=== PATIENT | female | born 1995 | race Caucasian/White ===

== ENCOUNTER 2025-06-19 04:21 | Emergency (ER) | payer BC, SELFPAY ==
--- OUTSIDE RECORDS SUMMARY | 2025-06-06 07:20 | XMS RPT_ITS ---
Author Name Auto Generated Organization OHIP Care Team Providers Care In Shop Service Technician Name Role Phone GENE WOODRUFF Attending Unavailable CINTHYA MAGALLANES Primary Care Unavailab CINTHYA Fregoso Attending Unavailab CINTHYA Fregoso Primary Care Unavailab CINTHYA Fregoso Attending Unavailab CINTHYA Fregoso Primary Care Unavailab CINTHYA Fregoso Primary Care Unavailab CINTHYA Fregoso Referring Unavailab CINTHYA Fregoso Primary Care Unavailab CINTHYA Fregoso Attending Unavailab CINTHYA Fregoso Primary Care Unavailab CINTHYA Fregoso Referring Unavailab CINTHYA Fregoso Attending Unavailab CINTHYA Fregoso Primary Care Unavailab CINTHYA Fregoso Referring Unavailab CONCEPCION Bates Attending Unavailable CINTHYA MAGALLANES Primary Care Unavailab CINTHYA Fregoso Attending Unavailab le PROBLEMS DATE TYPE CONDITION / CODE ATTENDING STATUS [facility] 06/06/2025 Active Seasonal allergi es / J30.2(ICD-10) CINTHYA MAGALLANES Active [facility] 04/22/2025 Active Encounter for gynecological examination (general) (routine) without abnormal findings / Z01.419(ICD-10) CONCEPCION SANFORD Active [facility] 04/22/2025 Active Encounter for sc reening for human papillomavirus (HPV) / Z11.51(ICD-10) CONCEPCION SANFORD Active [facility] 05/07/2022 Active Attention defici t disorder, unspecified type / F98.8(ICD-10) CINTHYA MAGALLANES Active [facility] 02/10/2025 Active Ear pain, right / H92.01(ICD-10) CINTHYA MAGALLANES Active [facility] 02/10/2025 Active Dysfunction of r ight eustachian tube / H69.91(ICD-10) CINTHYA MAGALLANES Active [facility] 02/10/2025 Active Seasonal allergi c rhinitis, unspecified trigger / J30.2(ICD-10) CINTHYA MAGALLANES Active [facility] 12/09/2024 Active Class 1 obesity without serious comorbidity with body mass index (BMI) of 31.0 to 31.9 in adult, unspecified obesity type / E66.811(ICD-10) CINTHYA MAGALLANES Active [facility] 12/09/2024 Active Class 1 obesity without serious comorbidity with body mass index (BMI) of 31.0 to 31.9 in adult, unspecified obesity type / Z68.31(ICD-10) CINTHYA MAGALLANES Active [facility] 12/09/2024 Active Annual physical exam / Z00.00(ICD-10) CINTHYA MAGALLANES Active [facility] 12/09/2024 Active Tachycardia / R00.0(ICD-10) CINTHYA MAGALLANES Active [facility] 12/09/2024 Active Screening for ce rvical cancer / Z12.4(ICD-10) CINTHYA MAGALLANES Active [facility] 05/07/2022 Active Attention defici t hyperactivity disorder (ADHD), unspecified ADHD type / F90.9(ICD-10) CINTHYA MAGALLANES Active [facility] 07/21/2024 Active Impacted cerumen of right ear / H61.21(ICD-10) PODLOGGENE SUTHERLAND Active [facility] 07/21/2024 Active Right ear pain / H92.01(ICD-10) PODLOGGENE SUTHERLAND Active [facility] PROCEDURES No Procedure Records Found RESULTS PROGRESS Observed: 06/06/2025 7:40 AM Status: COMPLETED Source: [facility] HNO ID: [id number] Author: CINTHYA MAGALLANES MD Service: ? Author Type: Physician Type: Progress Notes Filed: 06/06/2025 08:03 Note Text: Chief Complaint Patient presents with: ADD/ADHD Recording using Gazemetrix software for draft documentation of the visit was discussed with the patient/authorized human resources hr representative; all questions welcomed and answered. Patient/authorized human resources hr representative agreed to proceed HPI Miller Ellis is a 29 year old female who presents here today for Above Complaints. ADHD: - Miller Ellis recently switched to Strattera 40 mg. - Reports really bad heartburn when taking medication on an empty stomach; resolved by eating after taking the medication. - Able to concentrate and complete tasks; no issues at work or home. - Occasionally loses keys; no other organizational problems. - Denies other side effects from the medication. - Prefers to continue current dosage. Allergies: - Well-managed with Zyrtec. - Denies new coughing, wheezing, or dyspnea. Past medical history, appointments, medications, allergies reviewed. Previous Medical History PAST MEDICAL HISTORY Diagnosis Date Attention deficit disorder (ADD) without hyperactivity Obesity Other acne Seasonal allergies Previous Surgical History PAST SURGICAL HISTORY Procedure Laterality Date TONSILLECTOMY AND ADENOIDECTOMY <AGE 10 Bilateral Family History FAMILY HISTORY Problem Relation Age of Onset Seizures Mother other (epilipsy) Mother Crohn's Disease Mother No Known Problems Father other (epilipsy) Sister Endometriosis Sister ADD/ADHD Sister No Known Problems Sister Seizures Brother other (heart transplant) Maternal Grandmother Alcohol abuse Maternal Grandfather Recovered Diabetes Paternal Grandfather Colon Cancer No Family History Patient Allergies ALLERGIES Allergen Reactions Adderall Xr [Dextro* Other: See Comments Tachycardia Current Medications Current Outpatient Medications on File Prior to Visit Medication Sig cetirizine HCl (ZYRTEC PO) Take by mouth. atomoxetine (STRATTERA) 40 mg capsule Take 1 capsule by mouth once daily. cetirizine HCl/pseudoephedrine (ZYRTEC-D ORAL) Take by mouth. (Patient not taking: Reported on 04/22/2025) No current facility-administered medications on file prior to visit. Social History SOCIAL HISTORY[1] Review of Symptoms REVIEW OF SYSTEMS GENERAL: No weight loss, malaise or fevers RESPIRATORY: Negative for cough, hemoptysis, wheezing, COPD, dyspnea or shortness of breath CARDIOVASCULAR: Negative for chest pain, leg swelling, hypertension, CHF or palpitations GI: No nausea, vomiting, or diarrhea SKIN: Negative for lesions, rash, and itching EXAM: BP 112/74 Pulse 87 Ht 170.2 cm (5' 7) Wt 92.1 kg (203 lb) LMP 04/05/2025 (Approximate) SpO2 98% BMI 31.79 kg/m? General Appearance: Well appearing, alert, in no acute distress, well-hydrated, well nourished.. Skin: Skin color, texture, turgor normal, no suspicious rashes or lesions. Lungs: Lungs clear to auscultation. No wheezing, rhonchi, rales.. Heart: RRR without murmur, gallop, or rubs. No ectopy. Abdomen: Normal abdominal exam, Abdomen soft, non-tender. Bowel sounds normal. No masses, organomegaly. Extremities: No deformities, edema, skin discoloration, clubbing or cyanosis. Good capillary refill. . Health Maintenance List Depression Screening Never done Anxiety Screening Never done HPV Vaccine(1 - 3-dose SCDM series) Never done Influenza Vaccine(1) due on 03/21/2026 Cervical Cancer Screening due on 04/22/2030 DTaP,Tdap,Td Vaccine(8 - Td or Tdap) due on 09/03/2032 Hepatitis B Vaccine Completed Hepatitis C Screening Completed HIV Screening Completed Data reviewed Latest Ref Rng 12/09/2024 WBC 3.70 - 11.00 k/uL 5.06 RBC 3.90 - 5.20 m/uL 4.85 Hemoglobin 11.5 - 15.5 g/dL 13.4 Hematocrit 36.0 - 46.0 % 40.7 MCV 80.0 - 100.0 fL 83.9 MCH 26.0 - 34.0 pg 27.6 MCHC 30.5 - 36.0 g/dL 32.9 RDW-CV 11.5 - 15.0 % 12.7 Platelet Count 150 - 400 k/uL 293 MPV 9.0 - 12.7 fL 10.5 Neut% % 53.1 Abs Neut (ANC) 1.45 - 7.50 k/uL 2.69 Lymph% % 32.8 Abs Lymph 1.00 - 4.00 k/uL 1.66 [place]% % 10.7 Abs [place] <0.87 k/uL 0.54 Eosin% % 2.4 Abs Eosin <0.46 k/uL 0.12 Baso% % 0.8 Abs Baso <0.11 k/uL 0.04 Immature Gran % % 0.2 IMMATURE GRANS (ABS) <0.10 k/uL <0.03 NRBC /100 WBC 0.0 Absolute nRBC <0.01 k/uL <0.01 DTYPE Auto Protein, Total 6.3 - 8.0 g/dL 7.4 Albumin 3.9 - 4.9 g/dL 4.5 Calcium 8.5 - 10.2 mg/dL 9.2 Bilirubin, Total 0.2 - 1.3 mg/dL 0.5 Alkaline Phosphatase 34 - 123 U/L 62 AST 13 - 35 U/L 15 ALT 7 - 38 U/L 11 Glucose 74 - 99 mg/dL 90 BUN 7 - 21 mg/dL 11 Creatinine 0.58 - 0.96 mg/dL 0.67 Sodium 136 - 144 mmol/L 139 Potassium 3.7 - 5.1 mmol/L 4.2 Chloride 98 - 107 mmol/L 104 CO2 22 - 30 mmol/L 23 Anion Gap 8 - 15 mmol/L 12 eGFR >=60 mL/min/1.73m? 120 Total Cholesterol, Nonfasting <200 mg/dL 183 Triglycerides, Nonfasting <150 mg/dL 66 HDL Cholesterol, Nonfasting >39 mg/dL 92 LDL Cholesterol Calculated, Nonfasting <100 mg/dL 78 Non HDL Cholesterol, Nonfasting <130 mg/dL 91 VLDL Cholesterol, Nonfasting <30 mg/dL 13 Total Chol/HDL Ratio, Nonfasting <5.10 mg/dL 1.99 LDL/HDL Ratio, Nonfasting <2.54 mg/dL 0.85 Hemoglobin A1C 4.3 - 5.6 % 4.9 Estimated Average Glucose mg/dL 94 TSH 0.270 - 4.200 mIU/L 2.370 1. Attention deficit disorder, unspecified type (F98.8) - Controlled on current Strattera regimen; occasional heartburn managed by eating after medication. - No major side effects or issues with organization or task completion. - Continue current Strattera dose; patient has sufficient refills through September. - Discussed potential dose increase from 40 mg to 80 mg if symptoms worsen, with warning that this may exacerbate heartburn. - Routine follow-up not required every 3 months due to non-stimulant medication; next physical scheduled for November. 2. Seasonal allergies (J30.2) - Stable on current Zyrtec regimen. - No new symptoms of coughing, wheezing, or shortness of breath. - Continue current management. Cinthya Magallanes MD [1] Social History Tobacco Use Smoking status: Never Smokeless tobacco: Never Vaping Use Vaping status: Never Used Substance Use Topics Alcohol use: Yes Alcohol/week: 2.0 standard drinks of alcohol Types: 2 Cans of Beer (12oz) per week Comment: Occasionally Drug use: Never CNOV Observed: 06/06/2025 7:20 AM Status: COMPLETED Source: [facility] MILLER ELLIS ([id number]) 1995 F Date Time Provider Department 06/06/25 7:20 AM CINTHYA MAGALLANES [facility] During your visit today, we recorded the following information about you: Pulse Blood pressure Weight Height 87/minute 112/74 92.1 kg 1.702 m Cinthya Magallanes MD 06/06/2025 8:03 AM Signed Chief Complaint Patient presents with: ADD/ADHD Recording using Gazemet[employer] software for draft documentation of the visit was discussed with the patient/authorized human resources hr representative; all questions welcomed and answered. Patient/authorized human resources hr representative agreed to proceed HPI Miller Ellis is a 29 year old female who presents here today for Above Complaints. ADHD: - Miller Ellis recently switched to Strattera 40 mg. - Reports really bad heartburn when taking medication on an empty stomach; resolved by eating after taking the medication. - Able to concentrate and complete tasks; no issues at work or home. - Occasionally loses keys; no other organizational problems. - Denies other side effects from the medication. - Prefers to continue current dosage. Allergies: - Well-managed with Zyrtec. - Denies new coughing, wheezing, or dyspnea. Past medical history, appointments, medications, allergies reviewed. Previous Medical History PAST MEDICAL HISTORY Diagnosis Date Attention deficit disorder (ADD) without hyperactivity Obesity Other acne Seasonal allergies Previous Surgical History PAST SURGICAL HISTORY Procedure Laterality Date TONSILLECTOMY AND ADENOIDECTOMY <AGE 10 Bilateral Family History FAMILY HISTORY Problem Relation Age of Onset Seizures Mother other (epilipsy) Mother Crohn's Disease Mother No Known Problems Father other (epilipsy) Sister Endometriosis Sister ADD/ADHD Sister No Known Problems Sister Seizures Brother other (heart transplant) Maternal Grandmother Alcohol abuse Maternal Grandfather Recovered Diabetes Paternal Grandfather Colon Cancer No Family History Patient Allergies ALLERGIES Allergen Reactions Adderall Xr [Dextro* Other: See Comments Tachycardia Current Medications Current Outpatient Medications on File Prior to Visit Medication Sig cetirizine HCl (ZYRTEC PO) Take by mouth. atomoxetine (STRATTERA) 40 mg capsule Take 1 capsule by mouth once daily. cetirizine HCl/pseudoephedrine (ZYRTEC-D ORAL) Take by mouth. (Patient not taking: Reported on 04/22/2025) No current facility-administered medications on file prior to visit. Social History SOCIAL HISTORY[1] Review of Symptoms REVIEW OF SYSTEMS GENERAL: No weight loss, malaise or fevers RESPIRATORY: Negative for cough, hemoptysis, wheezing, COPD, dyspnea or shortness of breath CARDIOVASCULAR: Negative for chest pain, leg swelling, hypertension, CHF or palpitations GI: No nausea, vomiting, or diarrhea SKIN: Negative for lesions, rash, and itching EXAM: BP 112/74 Pulse 87 Ht 170.2 cm (5' 7) Wt 92.1 kg (203 lb) LMP 04/05/2025 (Approximate) SpO2 98% BMI 31.79 kg/m? General Appearance: Well appearing, alert, in no acute distress, well-hydrated, well nourished.. Skin: Skin color, texture, turgor normal, no suspicious rashes or lesions. Lungs: Lungs clear to auscultation. No wheezing, rhonchi, rales.. Heart: RRR without murmur, gallop, or rubs. No ectopy. Abdomen: Normal abdominal exam, Abdomen soft, non-tender. Bowel sounds normal. No masses, organomegaly. Extremities: No deformities, edema, skin discoloration, clubbing or cyanosis. Good capillary refill. . Health Maintenance List Depression Screening Never done Anxiety Screening Never done HPV Vaccine(1 - 3-dose SCDM series) Never done Influenza Vaccine(1) due on 03/21/2026 Cervical Cancer Screening due on 04/22/2030 DTaP,Tdap,Td Vaccine(8 - Td or Tdap) due on 09/03/2032 Hepatitis B Vaccine Completed Hepatitis C Screening Completed HIV Screening Completed Data reviewed Latest Ref Rng 12/09/2024 WBC 3.70 - 11.00 k/uL 5.06 RBC 3.90 - 5.20 m/uL 4.85 Hemoglobin 11.5 - 15.5 g/dL 13.4 Hematocrit 36.0 - 46.0 % 40.7 MCV 80.0 - 100.0 fL 83.9 MCH 26.0 - 34.0 pg 27.6 MCHC 30.5 - 36.0 g/dL 32.9 RDW-CV 11.5 - 15.0 % 12.7 Platelet Count 150 - 400 k/uL 293 MPV 9.0 - 12.7 fL 10.5 Neut% % 53.1 Abs Neut (ANC) 1.45 - 7.50 k/uL 2.69 Lymph% % 32.8 Abs Lymph 1.00 - 4.00 k/uL 1.66 [place]% % 10.7 Abs [place] <0.87 k/uL 0.54 Eosin% % 2.4 Abs Eosin <0.46 k/uL 0.12 Baso% % 0.8 Abs Baso <0.11 k/uL 0.04 Immature Gran % % 0.2 IMMATURE GRANS (ABS) <0.10 k/uL <0.03 NRBC /100 WBC 0.0 Absolute nRBC <0.01 k/uL <0.01 DTYPE Auto Protein, Total 6.3 - 8.0 g/dL 7.4 Albumin 3.9 - 4.9 g/dL 4.5 Calcium 8.5 - 10.2 mg/dL 9.2 Bilirubin, Total 0.2 - 1.3 mg/dL 0.5 Alkaline Phosphatase 34 - 123 U/L 62 AST 13 - 35 U/L 15 ALT 7 - 38 U/L 11 Glucose 74 - 99 mg/dL 90 BUN 7 - 21 mg/dL 11 Creatinine 0.58 - 0.96 mg/dL 0.67 Sodium 136 - 144 mmol/L 139 Potassium 3.7 - 5.1 mmol/L 4.2 Chloride 98 - 107 mmol/L 104 CO2 22 - 30 mmol/L 23 Anion Gap 8 - 15 mmol/L 12 eGFR >=60 mL/min/1.73m? 120 Total Cholesterol, Nonfasting <200 mg/dL 183 Triglycerides, Nonfasting <150 mg/dL 66 HDL Cholesterol, Nonfasting >39 mg/dL 92 LDL Cholesterol Calculated, Nonfasting <100 mg/dL 78 Non HDL Cholesterol, Nonfasting <130 mg/dL 91 VLDL Cholesterol, Nonfasting <30 mg/dL 13 Total Chol/HDL Ratio, Nonfasting <5.10 mg/dL 1.99 LDL/HDL Ratio, Nonfasting <2.54 mg/dL 0.85 Hemoglobin A1C 4.3 - 5.6 % 4.9 Estimated Average Glucose mg/dL 94 TSH 0.270 - 4.200 mIU/L 2.370 1. Attention deficit disorder, unspecified type (F98.8) - Controlled on current Strattera regimen; occasional heartburn managed by eating after medication. - No major side effects or issues with organization or task completion. - Continue current Strattera dose; patient has sufficient refills through September. - Discussed potential dose increase from 40 mg to 80 mg if symptoms worsen, with warning that this may exacerbate heartburn. - Routine follow-up not required every 3 months due to non-stimulant medication; next physical scheduled for November. 2. Seasonal allergies (J30.2) - Stable on current Zyrtec regimen. - No new symptoms of coughing, wheezing, or shortness of breath. - Continue current management. Cinthya Magallanes MD [1] Social History Tobacco Use Smoking status: Never Smokeless tobacco: Never Vaping Use Vaping status: Never Used Substance Use Topics Alcohol use: Yes Alcohol/week: 2.0 standard drinks of alcohol Types: 2 Cans of Beer (12oz) per week Comment: Occasionally Drug use: Never Cinthya Magallanes MD 06/06/2025 8:02 AM Addendum - Continue taking Strattera 40 mg daily and plan to eat a meal or snack right after your dose to help prevent heartburn; your prescription has refills through September. - If you notice your concentration slipping or tasks becoming harder, let us know--you may be able to increase the dose from 40 mg to 80 mg (this may increase heartburn). - Continue your current Zyrtec for allergy relief as prescribed. - Place a bowl or designated spot by your door at home to drop your keys when you come in, which may help reduce misplacing them. - Plan to have your annual physical at the beginning of next year; the nurse will contact you to schedule this appointment. - Consider getting a flu shot in early to mid-June, and a COVID-19 vaccine in the fall if available; we?ll follow updated guidelines regarding eligibility. Allergies As of Date: 06/06/2025 Noted Allergy Reaction ADDERALL XR (DEXTROAMPHETAMINE-AM*03/04/2025 14 - Other: See Comments Comments: Tachycardia Date Reviewed: 06/06/2025 Reviewed by: Marie Wagner MA - Fully Assessed Reason for Visit: ADD/ADHD [790] Primary Visit Diagnosis:Attention deficit disorder, unspecified type [F98.8] Other Visit Diagnosis:Seasonal allergies [J30.2] Prescriptions as of 06/06/2025 - cetirizine HCl (ZYRTEC PO) Take by mouth. - atomoxetine (STRATTERA) 40 mg capsule Take 1 capsule by mouth once daily. - cetirizine HCl/pseudoephedrine (ZYRTEC-D ORAL) Take by mouth. Problem List As Of Date 06/06/2025 Noted Resolved Overweight (BMI 25.0-29.9) [E66.3] 05/07/2022 Attention deficit disorder [F98.8] 05/07/2022 History of COVID-19 [Z86.16] 05/07/2022 Acne vulgaris [L70.0] 05/07/2022 Obesity [E66.9] Seasonal allergies [J30.2] Other instructions from your clinician: - Continue taking Strattera 40 mg daily and plan to eat a meal or snack right after your dose to help prevent heartburn; your prescription has refills through September. - If you notice your concentration slipping or tasks becoming harder, let us know--you may be able to increase the dose from 40 mg to 80 mg (this may increase heartburn). - Continue your current Zyrtec for allergy relief as prescribed. - Place a bowl or designated spot by your door at home to drop your keys when you come in, which may help reduce misplacing them. - Plan to have your annual physical at the beginning of next year; the nurse will contact you to schedule this appointment. - Consider getting a flu shot in early to mid-June, and a COVID-19 vaccine in the fall if available; we?ll follow updated guidelines regarding eligibility. Disposition: Return in about 6 months (around 12/04/2025). Follow-up and Disposition History for Encounter Date Provider Department Center 06/06/2025 [id number]-IPJWPOICHARLES MAGALLANESTHERESA Shah [facility] Encounter Status:Closed by CINTHYA MAGALLANES on 06/06/25 PAP TEST Collected: 3:08 PM Status: F Source: [facility] Order Comment: Specimen Type : FLUID SPECIMEN Ordering Facility: [facility] Address: [address] [place] [address] TYPE CODE TESTS RESULT OUT OF RANGE REFERENCE UNITS PATHOLOGY [id number] CASE REPORT Result Comment: Gynecologic Cytology Report Case: [id number] Authorizing Provider: Concepcion Sanford MD Collected: 04/22/2025 03:08 PM Ordering Location: OB/Gynecology Received: 04/22/2025 04:29 PM First Screen: Elena Reddy CT, ASCP Specimen: Pap Test, ThinPrep, Cervix PATHOLOGY [id number] ADEQUACY Result Comment: Satisfactory for interpretation. Transformation zone present PATHOLOGY [id number] INTERPRETATIO N, CYTOLOGY, REGISTERED NURSE CARDIAC Result Comment: Negative for intraepithelial lesion or malignancy. at 1504 EDT PATHOLOGY [id number] CLINICAL HISTORY, CYTOLOGY, REGISTERED NURSE CARDIAC Routine Exam PATHOLOGY [id number] LMP 04/05/2025 PATHOLOGY PAPDC PAP DISCLAIMER COMMENT The Pap Smear is a screening test for cervical cancer. False negative results occur with all screening tests, emphasizing the need for rescreening at recommended intervals, and clinical correlation. PATHOLOGY PAPIC PAP SHAPE CARVER COMMENT This specimen has been analyzed by the FDA-approved bizk.it System, which uses digital imaging and an enhanced artificial intelligence image analysis algorithm to identify mendenhall of interest on the microscopic slide, to assist the certified physician's assistant and pathologist in evaluating cells on ThinPrep Pap tests. Following analysis, mendenhall of interest on the microscopic slide selected by the algorithm are reviewed by a certified physician's assistant. If a sample requires hierarchical review, the pathologist will review the same mendenhall of interest selected by the algorithm prior to final interpretation. PATHOLOGY [facility] FINAL PERFORMING LAB Result Comment: Technical co mponent, consumer lending manager screening performed at: [facility], [address] [place] [address] CLIA: [id number] Diagnostic interpretation performed at: [facility], [address] [place] [address] CLIA# [id number] Load Builder: Ivan Torres MD Performed By: #### [id number] # ### [facility] CLIA [id number] [address] [place] [address] [place] HIGH RISK HUMAN PAPILLOMA VIRUS (HPV), PCR FOR DETECTION AND GENOTYPING Collected: 04/22/2025 3:08 PM Status: F Source: [facility] Order Comment: Specimen Type : FLUID SPECIMEN Ordering Facility: [facility] Address: [address] [place] [address] TYPE CODE TESTS RESULT OUT OF RANGE REFERENCE UNITS LAB 89732-6(LOINC) HPV16 Ag Spec Ql Not detected Not detected LAB 95675-0(LOINC) HPV18 Ag Spec Ql Not detected Not detected LAB 36289-3(LOINC) HPV HR 12 DNA Cvx Ql JAJA+probe Not detected Not detected Result Comment: High Risk HP V Other Type includes HPV types 31, 33, 35, 39, 45, 51, 52, 56, 58, 59, 66 and 68. Performed By: #### HPVHRT ## ## [facility] CLIA [id number] [address] [place] [address] [place] CNOV Observed: 04/22/2025 2:20 PM Status: COMPLETED Source: [facility] Office Visit ([facility]) MILLER ELLIS ([id number]) 1995 F Date Time Provider Department 04/22/25 2:20 PM CONCEPCION SANFORDGYWWanda During your visit today, we recorded the following information about you: Blood pressure Weight Height Last Period 118/76 90.3 kg 1.702 m 04/05/25 Concepcion Sanford MD 04/22/2025 2:27 PM Signed Miller is a 29 year old who presents for an annual gynecologic exam without complaints. Getting in Novemeber Plan NFP for BC Still get period: Yes Bleeding amount bothersome: No Bleeding between periods: No Period symptoms: Acne; Breast tenderness Contraception: Rhythm Contraception frequency: Always HPV vaccine: Unsure; HPV:N/A Last pap smear: 2020 History of abnormal pap: No, all prior PAP smears have been normal Bothersome pelvic pain: No Last mammogram: never OB History Gravida0 Para0 Term0 Preterm0 AB0 Living0 SAB0 IAB0 Ectopic0 Multiple0 Live Births0 Facing Machine Operator History LMP: 04/05/2025 (Approximate), Having periods Age at Menarche: 8 Age at First : Age at Menopause: Facing Machine Operator History Comments: Sexual Activity: Not Currently; Male Contraception: No contraception data on record Menstrual Tracking History Flowsheet Row Office Visit from 04/22/2025 in OB/Gynecology Appointment from 03/04/2025 in OB/Gynecology Period Cycle (Days) 24 24 Period Duration (Days) 4 4 Menstrual Flow Moderate Moderate PAST MEDICAL HISTORY Diagnosis Date Attention deficit disorder (ADD) without hyperactivity Obesity Other acne Seasonal allergies PAST SURGICAL HISTORY Procedure Laterality Date TONSILLECTOMY AND ADENOIDECTOMY <AGE 10 Bilateral FAMILY HISTORY Problem Relation Age of Onset Seizures Mother other (epilipsy) Mother Crohn's Disease Mother No Known Problems Father other (epilipsy) Sister Endometriosis Sister ADD/ADHD Sister No Known Problems Sister Seizures Brother other (heart transplant) Maternal Grandmother Alcohol abuse Maternal Grandfather Recovered Diabetes Paternal Grandfather Colon Cancer No Family History SOCIAL HISTORY Social History Tobacco Use Smoking status: Never Smokeless tobacco: Never Vaping Use Vaping status: Never Used Substance Use Topics Alcohol use: Yes Alcohol/week: 2.0 standard drinks of alcohol Types: 2 Cans of Beer (12oz) per week Comment: Occasionally Drug use: Never REVIEW OF SYSTEMS Abdomen: No abdominal pain, nausea, vomiting, diarrhea, or constipation. No bloating, early satiety, indigestion, or increased flatulence. Bladder: No dysuria, gross hematuria, urinary frequency, urinary urgency, or incontinence. Breast: No breast lumps, nipple d/c, overlying skin changes, redness or skin retraction. Allergies and current medication updated:Yes SENSITIVE EXAM: The sensitive examination was discussed with the Patient or Patient's Authorized Shovel Log Loader Operator. As applicable, any other physician, advance practice provider, medical student, or other health professional student that will be observing or involved in the sensitive examination for educational or training purposes was discussed with the Patient or Authorized Shovel Log Loader Operator. The Patient or Authorized Shovel Log Loader Operator has agreed to proceed with the sensitive examination. (Sensitive examination includes inspection and/or palpation of the breasts, pelvis, prostate and anorectal regions). EXAM: BP 118/76 Ht 5' 7 (1.70m) Wt 199 lb (90.3kg) LMP 04/05/2025 BMI 31.16 kg/(m2). GENERAL: pleasant, female in no apparent distress HEENT: Normocephalic, atraumatic, mucus membranes moist, and no lesions NECK: Supple, full range of motion, no adenopathy, and thyroid normal DERMATOLOGY: Normal, without lesions, non-icteric, and non-hirsute BREAST: soft, non-tender, symmetric, no dominant mass, normal nipple-areolar complex, no lymphadenopathy, and no nipple discharge CHEST: Normal inspiratory effort ABDOMEN: soft, non-tender, and no masses PELVIC: external genitalia normal, normal Bartholin's glands, urethra, Livingston Wheeler's glands, no vulvar lesions, no cervical lesions, good vaginal support, physiologic discharge present, normal appearing perineal body and perianal region BIMANUAL: uterus normal size, shape and consistency, no adnexal masses, and non-tender RECTOVAGINAL: deferred. NEURO: alert and oriented x3,exam grossly non-focal EXTREMITIES: normal ASSESSMENT/PLAN: 1) Health maintenance: Pap done with HPV. 2) Contraception: natural family planning. Contraceptive options reviewed and information provided. 3) STD screening: Declined STI check. 4) Follow up one year or sooner as needed Concepcion Sanford MD Referring Provider: CINTHYA MAGALLANES [[id number]] Allergies As of Date: 04/22/2025 Noted Allergy Reaction ADDERALL XR (DEXTROAMPHETAMINE-AM*03/04/2025 14 - Other: See Comments Comments: Tachycardia Date Reviewed: 04/22/2025 Reviewed by: Concepcion Sanford MD - Fully Assessed Reason for Visit: Yearly Exam [187] Primary Visit Diagnosis:Encounter for gynecological examination (general) (routine) without abnormal findings [Z01.419] Other Visit Diagnoses:Screening for cervical cancer [Z12.4] Encounter for screening for human papillomavirus (HPV) [Z11.51] Order(s):CONSULT TO GYNECOLOGY [9013] Order #: [id number]: 1 PAP TEST [GLH7770] Order #: [id number] Prescriptions as of 04/22/2025 - cetirizine HCl (ZYRTEC PO) Take by mouth. - atomoxetine (STRATTERA) 40 mg capsule Take 1 capsule by mouth once daily. - cetirizine HCl/pseudoephedrine (ZYRTEC-D ORAL) Take by mouth. Problem List As Of Date 04/22/2025 Noted Resolved Overweight (BMI 25.0-29.9) [E66.3] 05/07/2022 Attention deficit disorder [F98.8] 05/07/2022 History of COVID-19 [Z86.16] 05/07/2022 Acne vulgaris [L70.0] 05/07/2022 Obesity [E66.9] Level of Service: WELLNESS EXAMS EST 18-39 YRS [51631] Disposition: Return in 1 year (on 04/22/2026) for Annual Exam. Follow-up and Disposition History for Encounter Date Provider Department Center 04/22/20[id number] Status:Closed by CONCEPCION SANFORD on 04/22/25 PROGRESS Observed: 04/22/2025 2:01 PM Status: COMPLETED Source: [facility] ID: [id number] Author: CONCEPCION SANFORD MD Service: ? Author Type: Physician Type: Progress Notes Filed: 04/22/2025 14:27 Note Text: Miller is a 29 year old who presents for an annual gynecologic exam without complaints. Getting in Novemeber Plan NFP for BC Still get period: Yes Bleeding amount bothersome: No Bleeding between periods: No Period symptoms: Acne; Breast tenderness Contraception: Rhythm Contraception frequency: Always HPV vaccine: Unsure; HPV:N/A Last pap smear: 2020 History of abnormal pap: No, all prior PAP smears have been normal Bothersome pelvic pain: No Last mammogram: never OB History Gravida0 Para0 Term0 Preterm0 AB0 Living0 SAB0 IAB0 Ectopic0 Multiple0 Live Births0 Facing Machine Operator History LMP: 04/05/2025 (Approximate), Having periods Age at Menarche: 8 Age at First : Age at Menopause: Facing Machine Operator History Comments: Sexual Activity: Not Currently; Male Contraception: No contraception data on record Menstrual Tracking History Flowsheet Row Office Visit from 04/22/2025 in OB/Gynecology Appointment from 03/04/2025 in OB/Gynecology Period Cycle (Days) 24 24 Period Duration (Days) 4 4 Menstrual Flow Moderate Moderate PAST MEDICAL HISTORY Diagnosis Date Attention deficit disorder (ADD) without hyperactivity Obesity Other acne Seasonal allergies PAST SURGICAL HISTORY Procedure Laterality Date TONSILLECTOMY AND ADENOIDECTOMY <AGE 10 Bilateral FAMILY HISTORY Problem Relation Age of Onset Seizures Mother other (epilipsy) Mother Crohn's Disease Mother No Known Problems Father other (epilipsy) Sister Endometriosis Sister ADD/ADHD Sister No Known Problems Sister Seizures Brother other (heart transplant) Maternal Grandmother Alcohol abuse Maternal Grandfather Recovered Diabetes Paternal Grandfather Colon Cancer No Family History SOCIAL HISTORY Social History Tobacco Use Smoking status: Never Smokeless tobacco: Never Vaping Use Vaping status: Never Used Substance Use Topics Alcohol use: Yes Alcohol/week: 2.0 standard drinks of alcohol Types: 2 Cans of Beer (12oz) per week Comment: Occasionally Drug use: Never REVIEW OF SYSTEMS Abdomen: No abdominal pain, nausea, vomiting, diarrhea, or constipation. No bloating, early satiety, indigestion, or increased flatulence. Bladder: No dysuria, gross hematuria, urinary frequency, urinary urgency, or incontinence. Breast: No breast lumps, nipple d/c, overlying skin changes, redness or skin retraction. Allergies and current medication updated:Yes SENSITIVE EXAM: The sensitive examination was discussed with the Patient or Patient's Authorized Shovel Log Loader Operator. As applicable, any other physician, advance practice provider, medical student, or other health professional student that will be observing or involved in the sensitive examination for educational or training purposes was discussed with the Patient or Authorized Shovel Log Loader Operator. The Patient or Authorized Shovel Log Loader Operator has agreed to proceed with the sensitive examination. (Sensitive examination includes inspection and/or palpation of the breasts, pelvis, prostate and anorectal regions). EXAM: BP 118/76 Ht 5' 7 (1.70m) Wt 199 lb (90.3kg) LMP 04/05/2025 BMI 31.16 kg/(m2). GENERAL: pleasant, female in no apparent distress HEENT: Normocephalic, atraumatic, mucus membranes moist, and no lesions NECK: Supple, full range of motion, no adenopathy, and thyroid normal DERMATOLOGY: Normal, without lesions, non-icteric, and non-hirsute BREAST: soft, non-tender, symmetric, no dominant mass, normal nipple-areolar complex, no lymphadenopathy, and no nipple discharge CHEST: Normal inspiratory effort ABDOMEN: soft, non-tender, and no masses PELVIC: external genitalia normal, normal Bartholin's glands, urethra, Livingston Wheeler's glands, no vulvar lesions, no cervical lesions, good vaginal support, physiologic discharge present, normal appearing perineal body and perianal region BIMANUAL: uterus normal size, shape and consistency, no adnexal masses, and non-tender RECTOVAGINAL: deferred. NEURO: alert and oriented x3,exam grossly non-focal EXTREMITIES: normal ASSESSMENT/PLAN: 1) Health maintenance: Pap done with HPV. 2) Contraception: natural family planning. Contraceptive options reviewed and information provided. 3) STD screening: Declined STI check. 4) Follow up one year or sooner as needed Concepcion Sanford MD PROGRESS Observed: 03/04/2025 7:30 AM Status: COMPLETED Source: [facility] ID: [id number] Author: CINTHYA MAGALLANES MD Service: ? Author Type: Physician Type: Progress Notes Filed: 03/04/2025 07:40 Note Text: Chief Complaint Patient presents with: ADD/ADHD Follow up: Would like to discuss alternative medication. Adderall causing elevated HR. Recording using [employer] software for draft documentation of the visit was discussed with the patient/authorized human resources hr representative; all questions welcomed and answered. Patient/authorized human resources hr representative agreed to proceed HPI Miller Ellis is a 29 year old female who presents here today for Above Complaints. ADHD: - Currently taking Adderall. Would like to change rx. - Reports tachycardia with HR ~115 bpm, measured using a Garmin watch. - Has not monitored HR on days without Adderall. - Experienced palpitations and a really sharp pain yesterday after work; no pain today. - Previous EKG was normal. - Has tried Concerta and Strattera in the past; Strattera was effective for ADHD and anxiety. - Denies current depression or anxiety. Past medical history, appointments, medications, allergies reviewed. Previous Medical History PAST MEDICAL HISTORY Diagnosis Date Attention deficit disorder (ADD) without hyperactivity Obesity Other acne Seasonal allergies Previous Surgical History PAST SURGICAL HISTORY Procedure Laterality Date TONSILLECTOMY AND ADENOIDECTOMY <AGE 10 Bilateral Family History FAMILY HISTORY Problem Relation Age of Onset Seizures Mother other (epilipsy) Mother Crohn's Disease Mother No Known Problems Father other (epilipsy) Sister ADD/ADHD Sister No Known Problems Sister Seizures Brother other (heart transplant) Maternal Grandmother Alcohol abuse Maternal Grandfather Recovered Diabetes Paternal Grandfather Colon Cancer No Family History Patient Allergies ALLERGIES Allergen Reactions Adderall Xr [Dextro* Other: See Comments Tachycardia Current Medications Current Outpatient Medications on File Prior to Visit Medication Sig amphetamine-dextroamphetamine XR (ADDERALL XR) 20 mg capsule Take 1 capsule by mouth once daily for 30 days. cetirizine HCl/pseudoephedrine (ZYRTEC-D ORAL) Take by mouth. No current facility-administered medications on file prior to visit. Social History Social History Tobacco Use Smoking status: Never Smokeless tobacco: Never Vaping Use Vaping status: Never Used Substance Use Topics Alcohol use: Yes Alcohol/week: 2.0 standard drinks of alcohol Types: 2 Cans of Beer (12oz) per week Comment: Occasionally Drug use: Never Review of Symptoms REVIEW OF SYSTEMS See HPI EXAM: BP 114/80 Pulse 110 Ht 171.5 cm (5' 7.5) Wt 91.2 kg (201 lb) LMP 02/11/2025 SpO2 98% BMI 31.02 kg/m? General Appearance: Well appearing, alert, in no acute distress, well-hydrated, well nourished.. Skin: Skin color, texture, turgor normal, no suspicious rashes or lesions. Lungs: Lungs clear to auscultation. No wheezing, rhonchi, rales.. Heart: Negative findings: no murmurs, clicks, or gallops, Positive findings: tachycardia. Health Maintenance List Depression Screening Never done Anxiety Screening Never done Cervical Cancer Screening due on 08/22/2024 Covid-19 Vaccine( season) due on 08/26/2025 Influenza Vaccine(Season Ended) due on 05/23/2025 DTaP,Tdap,Td Vaccine(8 - Td or Tdap) due on 09/03/2032 Hepatitis B Vaccine Completed Hepatitis C Screening Completed HIV Screening Completed Data reviewed Latest Ref Rng 12/09/2024 WBC 3.70 - 11.00 k/uL 5.06 RBC 3.90 - 5.20 m/uL 4.85 Hemoglobin 11.5 - 15.5 g/dL 13.4 Hematocrit 36.0 - 46.0 % 40.7 MCV 80.0 - 100.0 fL 83.9 MCH 26.0 - 34.0 pg 27.6 MCHC 30.5 - 36.0 g/dL 32.9 RDW-CV 11.5 - 15.0 % 12.7 Platelet Count 150 - 400 k/uL 293 MPV 9.0 - 12.7 fL 10.5 Neut% % 53.1 Abs Neut (ANC) 1.45 - 7.50 k/uL 2.69 Lymph% % 32.8 Abs Lymph 1.00 - 4.00 k/uL 1.66 [place]% % 10.7 Abs [place] <0.87 k/uL 0.54 Eosin% % 2.4 Abs Eosin <0.46 k/uL 0.12 Baso% % 0.8 Abs Baso <0.11 k/uL 0.04 Immature Gran % % 0.2 IMMATURE GRANS (ABS) <0.10 k/uL <0.03 NRBC /100 WBC 0.0 Absolute nRBC <0.01 k/uL <0.01 DTYPE Auto Protein, Total 6.3 - 8.0 g/dL 7.4 Albumin 3.9 - 4.9 g/dL 4.5 Calcium 8.5 - 10.2 mg/dL 9.2 Bilirubin, Total 0.2 - 1.3 mg/dL 0.5 Alkaline Phosphatase 34 - 123 U/L 62 AST 13 - 35 U/L 15 ALT 7 - 38 U/L 11 Glucose 74 - 99 mg/dL 90 BUN 7 - 21 mg/dL 11 Creatinine 0.58 - 0.96 mg/dL 0.67 Sodium 136 - 144 mmol/L 139 Potassium 3.7 - 5.1 mmol/L 4.2 Chloride 98 - 107 mmol/L 104 CO2 22 - 30 mmol/L 23 Anion Gap 8 - 15 mmol/L 12 eGFR >=60 mL/min/1.73m? 120 Total Cholesterol, Nonfasting <200 mg/dL 183 Triglycerides, Nonfasting <150 mg/dL 66 HDL Cholesterol, Nonfasting >39 mg/dL 92 LDL Cholesterol Calculated, Nonfasting <100 mg/dL 78 Non HDL Cholesterol, Nonfasting <130 mg/dL 91 VLDL Cholesterol, Nonfasting <30 mg/dL 13 Total Chol/HDL Ratio, Nonfasting <5.10 mg/dL 1.99 LDL/HDL Ratio, Nonfasting <2.54 mg/dL 0.85 Hemoglobin A1C 4.3 - 5.6 % 4.9 Estimated Average Glucose mg/dL 94 TSH 0.270 - 4.200 mIU/L 2.370 1. Attention deficit disorder, unspecified type (F98.8) - Current medication: Adderall, associated with increased heart rate. - Discontinue Adderall; initiate Strattera 40 mg orally once daily in the morning. - Discussed potential side effects of Strattera, including gastrointestinal upset. - Prescription sent to [facility] in [place]. - Follow-up in 3 months to assess efficacy and tolerability; dosage adjustments may be considered based on response. 2. Tachycardia (R00.0) - Heart rate consistently around 115 bpm at home, measured using a Garmin watch. - No current symptoms of chest pain, shortness of breath, or palpitations; previous EKG was normal. - Likely secondary to stimulant medication (Adderall). - Auscultation reveals regular rhythm, no extra or skipped beats. - Advised to monitor heart rate at home; report readings consistently above 100 bpm. - Symptoms expected to improve with discontinuation of Adderall. Cinthya Magallanes MD CNOV Observed: 03/04/2025 7:20 AM Status: COMPLETED Source: [facility] MILLER ELLIS ([id number]) 1995 F Date Time Provider Department 03/04/25 7:20 AM CINTHYA MAGALLANES During your visit today, we recorded the following information about you: Pulse Blood pressure Weight Height 110/minute 114/80 91.2 kg 1.715 m Cinthya Magallanes MD 03/04/2025 7:40 AM Signed Chief Complaint Patient presents with: ADD/ADHD Follow up: Would like to discuss alternative medication. Adderall causing elevated HR. Recording using Gazem[employer] software for draft documentation of the visit was discussed with the patient/authorized human resources hr representative; all questions welcomed and answered. Patient/authorized human resources hr representative agreed to proceed HPI Miller Ellis is a 29 year old female who presents here today for Above Complaints. ADHD: - Currently taking Adderall. Would like to change rx. - Reports tachycardia with HR ~115 bpm, measured using a Garmin watch. - Has not monitored HR on days without Adderall. - Experienced palpitations and a really sharp pain yesterday after work; no pain today. - Previous EKG was normal. - Has tried Concerta and Strattera in the past; Strattera was effective for ADHD and anxiety. - Denies current depression or anxiety. Past medical history, appointments, medications, allergies reviewed. Previous Medical History PAST MEDICAL HISTORY Diagnosis Date Attention deficit disorder (ADD) without hyperactivity Obesity Other acne Seasonal allergies Previous Surgical History PAST SURGICAL HISTORY Procedure Laterality Date TONSILLECTOMY AND ADENOIDECTOMY <AGE 10 Bilateral Family History FAMILY HISTORY Problem Relation Age of Onset Seizures Mother other (epilipsy) Mother Crohn's Disease Mother No Known Problems Father other (epilipsy) Sister ADD/ADHD Sister No Known Problems Sister Seizures Brother other (heart transplant) Maternal Grandmother Alcohol abuse Maternal Grandfather Recovered Diabetes Paternal Grandfather Colon Cancer No Family History Patient Allergies ALLERGIES Allergen Reactions Adderall Xr [Dextro* Other: See Comments Tachycardia Current Medications Current Outpatient Medications on File Prior to Visit Medication Sig amphetamine-dextroamphetamine XR (ADDERALL XR) 20 mg capsule Take 1 capsule by mouth once daily for 30 days. cetirizine HCl/pseudoephedrine (ZYRTEC-D ORAL) Take by mouth. No current facility-administered medications on file prior to visit. Social History Social History Tobacco Use Smoking status: Never Smokeless tobacco: Never Vaping Use Vaping status: Never Used Substance Use Topics Alcohol use: Yes Alcohol/week: 2.0 standard drinks of alcohol Types: 2 Cans of Beer (12oz) per week Comment: Occasionally Drug use: Never Review of Symptoms REVIEW OF SYSTEMS See HPI EXAM: BP 114/80 Pulse 110 Ht 171.5 cm (5' 7.5) Wt 91.2 kg (201 lb) LMP 02/11/2025 SpO2 98% BMI 31.02 kg/m? General Appearance: Well appearing, alert, in no acute distress, well-hydrated, well nourished.. Skin: Skin color, texture, turgor normal, no suspicious rashes or lesions. Lungs: Lungs clear to auscultation. No wheezing, rhonchi, rales.. Heart: Negative findings: no murmurs, clicks, or gallops, Positive findings: tachycardia. Health Maintenance List Depression Screening Never done Anxiety Screening Never done Cervical Cancer Screening due on 08/22/2024 Covid-19 Vaccine( season) due on 08/26/2025 Influenza Vaccine(Season Ended) due on 05/23/2025 DTaP,Tdap,Td Vaccine(8 - Td or Tdap) due on 09/03/2032 Hepatitis B Vaccine Completed Hepatitis C Screening Completed HIV Screening Completed Data reviewed Latest Ref Rng 12/09/2024 WBC 3.70 - 11.00 k/uL 5.06 RBC 3.90 - 5.20 m/uL 4.85 Hemoglobin 11.5 - 15.5 g/dL 13.4 Hematocrit 36.0 - 46.0 % 40.7 MCV 80.0 - 100.0 fL 83.9 MCH 26.0 - 34.0 pg 27.6 MCHC 30.5 - 36.0 g/dL 32.9 RDW-CV 11.5 - 15.0 % 12.7 Platelet Count 150 - 400 k/uL 293 MPV 9.0 - 12.7 fL 10.5 Neut% % 53.1 Abs Neut (ANC) 1.45 - 7.50 k/uL 2.69 Lymph% % 32.8 Abs Lymph 1.00 - 4.00 k/uL 1.66 [place]% % 10.7 Abs [place] <0.87 k/uL 0.54 Eosin% % 2.4 Abs Eosin <0.46 k/uL 0.12 Baso% % 0.8 Abs Baso <0.11 k/uL 0.04 Immature Gran % % 0.2 IMMATURE GRANS (ABS) <0.10 k/uL <0.03 NRBC /100 WBC 0.0 Absolute nRBC <0.01 k/uL <0.01 DTYPE Auto Protein, Total 6.3 - 8.0 g/dL 7.4 Albumin 3.9 - 4.9 g/dL 4.5 Calcium 8.5 - 10.2 mg/dL 9.2 Bilirubin, Total 0.2 - 1.3 mg/dL 0.5 Alkaline Phosphatase 34 - 123 U/L 62 AST 13 - 35 U/L 15 ALT 7 - 38 U/L 11 Glucose 74 - 99 mg/dL 90 BUN 7 - 21 mg/dL 11 Creatinine 0.58 - 0.96 mg/dL 0.67 Sodium 136 - 144 mmol/L 139 Potassium 3.7 - 5.1 mmol/L 4.2 Chloride 98 - 107 mmol/L 104 CO2 22 - 30 mmol/L 23 Anion Gap 8 - 15 mmol/L 12 eGFR >=60 mL/min/1.73m? 120 Total Cholesterol, Nonfasting <200 mg/dL 183 Triglycerides, Nonfasting <150 mg/dL 66 HDL Cholesterol, Nonfasting >39 mg/dL 92 LDL Cholesterol Calculated, Nonfasting <100 mg/dL 78 Non HDL Cholesterol, Nonfasting <130 mg/dL 91 VLDL Cholesterol, Nonfasting <30 mg/dL 13 Total Chol/HDL Ratio, Nonfasting <5.10 mg/dL 1.99 LDL/HDL Ratio, Nonfasting <2.54 mg/dL 0.85 Hemoglobin A1C 4.3 - 5.6 % 4.9 Estimated Average Glucose mg/dL 94 TSH 0.270 - 4.200 mIU/L 2.370 1. Attention deficit disorder, unspecified type (F98.8) - Current medication: Adderall, associated with increased heart rate. - Discontinue Adderall; initiate Strattera 40 mg orally once daily in the morning. - Discussed potential side effects of Strattera, including gastrointestinal upset. - Prescription sent to [facility] in [place]. - Follow-up in 3 months to assess efficacy and tolerability; dosage adjustments may be considered based on response. 2. Tachycardia (R00.0) - Heart rate consistently around 115 bpm at home, measured using a Garmin watch. - No current symptoms of chest pain, shortness of breath, or palpitations; previous EKG was normal. - Likely secondary to stimulant medication (Adderall). - Auscultation reveals regular rhythm, no extra or skipped beats. - Advised to monitor heart rate at home; report readings consistently above 100 bpm. - Symptoms expected to improve with discontinuation of Adderall. MD Elpidio Ureña Christopher B, MD 03/04/2025 7:39 AM Signed - Stop taking your current stimulant (Adderall) immediately; no tapering is needed. - Begin atomoxetine (Strattera) 40 mg once daily in the morning; prescription has been sent to [facility] in [place]. - Monitor your heart rate at home with your Garmin watch; note if readings stay at or above 100 bpm or fall below 60 bpm and report these to us. - Watch for side effects from Strattera--upset stomach, nausea, vomiting, or diarrhea--and let us know if any occur. - Pay attention to chest pain, palpitations, or shortness of breath; contact the office right away if these symptoms return. - Update us within the next one to two weeks on how you?re tolerating Strattera and whether your ADHD symptoms are improving. - Schedule a follow-up appointment in about three months to review your response to Strattera and discuss any needed dosage adjustments. Referring Provider: CINTHYA MAGALLANES [[id number]] Allergies As of Date: 03/04/2025 Noted Allergy Reaction ADDERALL XR (DEXTROAMPHETAMINE-AM*03/04/2025 14 - Other: See Comments Comments: Tachycardia Date Reviewed: 03/04/2025 Reviewed by: Marie Wagner MA - Fully Assessed Reason for Visit: ADD/ADHD Follow up [1006] Cmt: Would like to discuss alternative medication. Adderall causing elevated HR. Primary Visit Diagnosis:Attention deficit disorder, unspecified type [F98.8] Other Visit Diagnosis:Tachycardia [R00.0] Order(s):atomoxetine (STRATTERA) 40 mg capsuleTake 1 capsule by mouth once daily.Disp: 30 capsuleRfl: 2 Prescriptions as of 03/04/2025 - atomoxetine (STRATTERA) 40 mg capsule Take 1 capsule by mouth once daily. - cetirizine HCl/pseudoephedrine (ZYRTEC-D ORAL) Take by mouth. Problem List As Of Date 03/04/2025 Noted Resolved Overweight (BMI 25.0-29.9) [E66.3] 05/07/2022 Attention deficit disorder [F98.8] 05/07/2022 History of COVID-19 [Z86.16] 05/07/2022 Acne vulgaris [L70.0] 05/07/2022 Obesity [E66.9] Other instructions from your clinician: - Stop taking your current stimulant (Adderall) immediately; no tapering is needed. - Begin atomoxetine (Strattera) 40 mg once daily in the morning; prescription has been sent to [facility] in [place]. - Monitor your heart rate at home with your Garmin watch; note if readings stay at or above 100 bpm or fall below 60 bpm and report these to us. - Watch for side effects from Strattera--upset stomach, nausea, vomiting, or diarrhea--and let us know if any occur. - Pay attention to chest pain, palpitations, or shortness of breath; contact the office right away if these symptoms return. - Update us within the next one to two weeks on how you?re tolerating Strattera and whether your ADHD symptoms are improving. - Schedule a follow-up appointment in about three months to review your response to Strattera and discuss any needed dosage adjustments. Prescriptions ordered this encounter Disp Refills Start End ATOMOXETINE 40 MG CAPSULE 30 c* 2 03/04/2025 06/02/2025 Route: PO Sig: Take 1 capsule by mouth once daily. Medications Discontinued During This Encounter Prescriptions - amphetamine-dextroamphetamine XR (ADDERALL XR) 20 mg capsule (Discontinued) Take 1 capsule by mouth once daily for 30 days. Disposition: Return in about 3 months (around 06/04/2025). Follow-up and Disposition History for Encounter Date Provider Department Center 03/04/2025 [id number] MAGALLANES [facility] Encounter Status:Closed by CINTHYA MAGALLANES on 03/04/25 CNPN Observed: 03/04/2025 12:00 AM Status: COMPLETED Source: [facility] Telephone (INTMWS) MILLER ELLIS ([id number]) 1995 F Date Time Provider Department 03/04/25 CINTHYA MAGALLANES INTMWS During your visit today, we recorded the following information about you: Rae Partida LPN 03/04/2025 8:48 AM Signed Electronic PA rec'd and completed for atomoxetine (strattera). Rae Partida LPN 03/04/2025 8:49 AM Signed Prior authorization approved Payer: [facility] [phone] Note from payer: Your PA request has been approved. Additional information will be provided in the approval communication. (Message [phone]) Approval Details Authorized from March 04, 2025 to March 03, 2028 Allergies As of Date: 03/04/2025 Noted Allergy Reaction ADDERALL XR (DEXTROAMPHETAMINE-AM*03/04/2025 14 - Other: See Comments Comments: Tachycardia Date Reviewed: 03/04/2025 Reviewed by: Marie Wagner MA - Fully Assessed Reason for Visit: Insurance Authorization [[id number]] Prescriptions as of 03/04/2025 - atomoxetine (STRATTERA) 40 mg capsule Take 1 capsule by mouth once daily. - cetirizine HCl/pseudoephedrine (ZYRTEC-D ORAL) Take by mouth. Problem List As Of Date 03/04/2025 Noted Resolved Overweight (BMI 25.0-29.9) [E66.3] 05/07/2022 Attention deficit disorder [F98.8] 05/07/2022 History of COVID-19 [Z86.16] 05/07/2022 Acne vulgaris [L70.0] 05/07/2022 Obesity [E66.9] Encounter Status:Closed by RAE PARTIDA on 03/04/25 PROGRESS Observed: 02/10/2025 11:49 AM Status: COMPLETED Source: [facility] HNO ID: [id number] Author: SIMEON MADRID LPN Service: ? Author Type: LICENSED NURSE Type: Progress Notes Filed: 02/10/2025 11:53 Note Text: Ambulatory Ear Lavage Pre-treatment: Warm water Treatment: Right ear Equipment and Irrigation solution and Volume used: Single use syringe with single use irrigation tip Water Total Irrigation Volume: 200cc Return flow appearance: Brown Debris Patient tolerated procedure: yes Tympanic membrane assessment: Tympanic membrane assessed by LIP pre and post procedure CNOV Observed: 02/10/2025 11:40 AM Status: COMPLETED Source: [facility] MILLER ELLIS ([id number]) 1995 F Date Time Provider Department 02/10/25 11:40 AM [facility] During your visit today, we recorded the following information about you: Pulse Respiration Blood pressure Weight 88/minute 16/minute 110/76 91.8 kg Cinthya Magallanes MD 02/10/2025 11:53 AM Signed Chief Complaint Patient presents with: Ear Problem: Right ear pain since last week Recording using Gazemetrix software for draft documentation of the visit was discussed with the patient/authorized human resources hr representative; all questions welcomed and answered. Patient/authorized human resources hr representative agreed to proceed HPI Miller Ellis is a 29 year old female who presents here today for Above Complaints. Right Ear Pain and Congestion: - Onset over a week ago, prior to a recent flight to [place]. - Describes pain as a persistent pressure, with intermittent popping sensations. - Pain is not alleviated by pulling on the ear. - Symptoms are more pronounced at night, causing sleep disturbances. - No associated otorrhea, fever, chills, or hearing loss. - Recent increase in nasal congestion and rhinorrhea. - Suspects symptoms may be related to seasonal allergies. - Currently using Flonase and cetirizine, with some improvement noted. Past medical history, appointments, medications, allergies reviewed. Previous Medical History PAST MEDICAL HISTORY Diagnosis Date Attention deficit disorder (ADD) without hyperactivity Obesity Other acne Seasonal allergies Previous Surgical History PAST SURGICAL HISTORY Procedure Laterality Date TONSILLECTOMY AND ADENOIDECTOMY <AGE 10 Bilateral Family History FAMILY HISTORY Problem Relation Age of Onset Seizures Mother other (epilipsy) Mother Crohn's Disease Mother No Known Problems Father other (epilipsy) Sister ADD/ADHD Sister No Known Problems Sister Seizures Brother other (heart transplant) Maternal Grandmother Alcohol abuse Maternal Grandfather Recovered Diabetes Paternal Grandfather Colon Cancer No Family History Patient Allergies ALLERGIES No Known Allergies Current Medications Current Outpatient Medications on File Prior to Visit Medication Sig amphetamine-dextroamphetamine XR (ADDERALL XR) 20 mg capsule Take 1 capsule by mouth once daily for 30 days. cetirizine HCl/pseudoephedrine (ZYRTEC-D ORAL) Take by mouth. No current facility-administered medications on file prior to visit. Social History Social History Tobacco Use Smoking status: Never Smokeless tobacco: Never Vaping Use Vaping status: Never Used Substance Use Topics Alcohol use: Yes Alcohol/week: 2.0 standard drinks of alcohol Types: 2 Cans of Beer (12oz) per week Comment: Occasionally Drug use: Never Review of Symptoms REVIEW OF SYSTEMS GENERAL: No weight loss, malaise or fevers HEENT: SEE HPI RESPIRATORY: Negative for cough, hemoptysis, wheezing, COPD, dyspnea or shortness of breath CARDIOVASCULAR: Negative for chest pain, leg swelling, hypertension, CHF or palpitations EXAM: BP 110/76 Pulse 88 Resp 16 Wt 91.8 kg (202 lb 6.4 oz) LMP 04/10/2024 (Approximate) SpO2 98% BMI 31.23 kg/m? General Appearance: Well appearing, alert, in no acute distress, well-hydrated, well nourished.. Skin: Skin color, texture, turgor normal, no suspicious rashes or lesions. Ears: Negative findings: Left tympanic membrane normal. Positive findings: cerumen on right, amount Moderate. Health Maintenance List Depression Screening Never done Anxiety Screening Never done Cervical Cancer Screening due on 08/22/2024 Covid-19 Vaccine( season) due on 08/26/2025 Influenza Vaccine(Season Ended) due on 05/23/2025 DTaP,Tdap,Td Vaccine(8 - Td or Tdap) due on 09/03/2032 Hepatitis B Vaccine Completed Hepatitis C Screening Completed HIV Screening Completed 1. Ear pain, right (H92.01) 2. Impacted cerumen of right ear (H61.21) - Cerumen impaction noted on otoscopic examination, likely contributing to otalgia and muffled sensation. - Performed ear irrigation, which resulted in significant removal of cerumen. - Advised use of Debrox drops, 5 drops once a month, to prevent future cerumen buildup. 3. Dysfunction of right eustachian tube (H69.91) - Clear fluid observed behind the tympanic membrane, likely secondary to eustachian tube dysfunction. - Recommended continuation of Flonase. - Advised performing Valsalva maneuvers and chewing gum to facilitate eustachian tube patency. 4. Seasonal allergic rhinitis, unspecified trigger (J30.2) - Symptoms include nasal congestion and rhinorrhea. - Continue current regimen of Flonase and cetirizine. MD Munira Ureña Lori, LPN 02/10/2025 11:53 AM Signed Ambulatory Ear Lavage Pre-treatment: Warm water Treatment: Right ear Equipment and Irrigation solution and Volume used: Single use syringe with single use irrigation tip Water Total Irrigation Volume: 200cc Return flow appearance: Brown Debris Patient tolerated procedure: yes Tympanic membrane assessment: Tympanic membrane assessed by LIP pre and post procedure Cinthya Magallanes MD 02/10/2025 11:52 AM Signed - Continue using Flonase nasal spray daily and cetirizine as directed for your seasonal allergies and fluid behind the eardrum. - Perform ear-popping exercises: gently pinch your nose and breathe out or chew gum to relieve pressure. - Use oysc-klv-yerrzgs Debrox ear drops: put 5 drops once a month to prevent buildup. Allergies As of Date: 02/10/2025 (No Known Allergies) Date Reviewed: 02/10/2025 Reviewed by: Simeon Madrid LPN - Fully Assessed Reason for Visit: Ear Problem [38] Cmt: Right ear pain since last week Primary Visit Diagnosis:Ear pain, right [H92.01] Other Visit Diagnoses:Impacted cerumen of right ear [H61.21] Dysfunction of right eustachian tube [H69.91] Seasonal allergic rhinitis, unspecified trigger [J30.2] Order(s):AMBULATORY EAR LAVAGE/IRRIGATION [13510IQT] Order #: [id number] Prescriptions as of 02/10/2025 - amphetamine-dextroamphetamine XR (ADDERALL XR) 20 mg capsule Take 1 capsule by mouth once daily for 30 days. - cetirizine HCl/pseudoephedrine (ZYRTEC-D ORAL) Take by mouth. Problem List As Of Date 02/10/2025 Noted Resolved Overweight (BMI 25.0-29.9) [E66.3] 05/07/2022 Attention deficit disorder [F98.8] 05/07/2022 History of COVID-19 [Z86.16] 05/07/2022 Acne vulgaris [L70.0] 05/07/2022 Obesity [E66.9] Other instructions from your clinician: - Continue using Flonase nasal spray daily and cetirizine as directed for your seasonal allergies and fluid behind the eardrum. - Perform ear-popping exercises: gently pinch your nose and breathe out or chew gum to relieve pressure. - Use egph-rfq-mbnkpsq Debrox ear drops: put 5 drops once a month to prevent buildup. Disposition: Return if symptoms worsen or fail to improve. Follow-up and Disposition History for Encounter Date Provider Department Center 02/10/2025 [id number] MAGALLANES*[facility] Encounter Status:Closed by CINTHYA MAGALLANES on 02/10/25 PROGRESS Observed: 02/10/2025 11:30 AM Status: COMPLETED Source: [facility] ID: [id number] Author: CINTHYA MAGALLANES MD Service: ? Author Type: Physician Type: Progress Notes Filed: 02/10/2025 11:53 Note Text: Chief Complaint Patient presents with: Ear Problem: Right ear pain since last week Recording using Gazemet[employer] software for draft documentation of the visit was discussed with the patient/authorized human resources hr representative; all questions welcomed and answered. Patient/authorized human resources hr representative agreed to proceed HPI Miller Ellis is a 29 year old female who presents here today for Above Complaints. Right Ear Pain and Congestion: - Onset over a week ago, prior to a recent flight to [place]. - Describes pain as a persistent pressure, with intermittent popping sensations. - Pain is not alleviated by pulling on the ear. - Symptoms are more pronounced at night, causing sleep disturbances. - No associated otorrhea, fever, chills, or hearing loss. - Recent increase in nasal congestion and rhinorrhea. - Suspects symptoms may be related to seasonal allergies. - Currently using Flonase and cetirizine, with some improvement noted. Past medical history, appointments, medications, allergies reviewed. Previous Medical History PAST MEDICAL HISTORY Diagnosis Date Attention deficit disorder (ADD) without hyperactivity Obesity Other acne Seasonal allergies Previous Surgical History PAST SURGICAL HISTORY Procedure Laterality Date TONSILLECTOMY AND ADENOIDECTOMY <AGE 10 Bilateral Family History FAMILY HISTORY Problem Relation Age of Onset Seizures Mother other (epilipsy) Mother Crohn's Disease Mother No Known Problems Father other (epilipsy) Sister ADD/ADHD Sister No Known Problems Sister Seizures Brother other (heart transplant) Maternal Grandmother Alcohol abuse Maternal Grandfather Recovered Diabetes Paternal Grandfather Colon Cancer No Family History Patient Allergies ALLERGIES No Known Allergies Current Medications Current Outpatient Medications on File Prior to Visit Medication Sig amphetamine-dextroamphetamine XR (ADDERALL XR) 20 mg capsule Take 1 capsule by mouth once daily for 30 days. cetirizine HCl/pseudoephedrine (ZYRTEC-D ORAL) Take by mouth. No current facility-administered medications on file prior to visit. Social History Social History Tobacco Use Smoking status: Never Smokeless tobacco: Never Vaping Use Vaping status: Never Used Substance Use Topics Alcohol use: Yes Alcohol/week: 2.0 standard drinks of alcohol Types: 2 Cans of Beer (12oz) per week Comment: Occasionally Drug use: Never Review of Symptoms REVIEW OF SYSTEMS GENERAL: No weight loss, malaise or fevers HEENT: SEE HPI RESPIRATORY: Negative for cough, hemoptysis, wheezing, COPD, dyspnea or shortness of breath CARDIOVASCULAR: Negative for chest pain, leg swelling, hypertension, CHF or palpitations EXAM: BP 110/76 Pulse 88 Resp 16 Wt 91.8 kg (202 lb 6.4 oz) LMP 04/10/2024 (Approximate) SpO2 98% BMI 31.23 kg/m? General Appearance: Well appearing, alert, in no acute distress, well-hydrated, well nourished.. Skin: Skin color, texture, turgor normal, no suspicious rashes or lesions. Ears: Negative findings: Left tympanic membrane normal. Positive findings: cerumen on right, amount Moderate. Health Maintenance List Depression Screening Never done Anxiety Screening Never done Cervical Cancer Screening due on 08/22/2024 Covid-19 Vaccine( season) due on 08/26/2025 Influenza Vaccine(Season Ended) due on 05/23/2025 DTaP,Tdap,Td Vaccine(8 - Td or Tdap) due on 09/03/2032 Hepatitis B Vaccine Completed Hepatitis C Screening Completed HIV Screening Completed 1. Ear pain, right (H92.01) 2. Impacted cerumen of right ear (H61.21) - Cerumen impaction noted on otoscopic examination, likely contributing to otalgia and muffled sensation. - Performed ear irrigation, which resulted in significant removal of cerumen. - Advised use of Debrox drops, 5 drops once a month, to prevent future cerumen buildup. 3. Dysfunction of right eustachian tube (H69.91) - Clear fluid observed behind the tympanic membrane, likely secondary to eustachian tube dysfunction. - Recommended continuation of Flonase. - Advised performing Valsalva maneuvers and chewing gum to facilitate eustachian tube patency. 4. Seasonal allergic rhinitis, unspecified trigger (J30.2) - Symptoms include nasal congestion and rhinorrhea. - Continue current regimen of Flonase and cetirizine. Cinthya Magallanes MD CBC W AUTO DIFF BLD Collected: 12/09/2024 8:[address] atus: F Source: [facility] Order Comment: Specimen Type : BLOOD SPECIMEN Ordering Facility: [facility] Address: [address] [place] [address] TYPE CODE TESTS RESULT OUT OF RANGE REFERENCE UNITS LAB 6690-2(LOINC) WBC # Bld Auto 5.06 3.70-11.00 k/uL LAB 789-8(LOINC) RBC # Bld Auto 4.85 3.90-5.20 m/ uL LAB 718-7(LOINC) Hgb Bld-mCnc 13.4 11.5-15.5 g/dL LAB 4544-3([facility]) Hct VFr Bld Auto 40.7 36.0-46.0 % LAB 787-2([facility]) MCV RBC Auto 83.9 80.0-100.0 fL LAB 785-6([facility]) MCH RBC Qn Auto 27.6 26.0-34.0 p g LAB 786-4([facility]) MCHC RBC Auto-mCnc 32.9 30.5-36.0 g/dL LAB 31937-8([facility]) RDW RBC-Rto 12.7 11.5-15.0 % LAB 777-3([facility]) Platelet # Bld Auto 293 150-400 k/uL LAB 62389-0([facility]) PMV Bld Auto 10.5 9.0-12.7 fL LAB 770-8([facility]) Neutrophils/leuk NFr Bld Auto 53.1 % LAB 751-8([facility]) Neutrophils # Bld Auto 2.69 1.45-7.50 k/uL LAB 736-9([facility]) Lymphocytes/leuk NFr Bld Auto 32.8 % LAB 731-0([facility]) Lymphocytes # Bld Auto 1.66 1.00-4.00 k/uL LAB 5905-5([facility]) Monocytes/leuk NFr Bld Auto 10.7 % LAB 742-7([facility]) Monocytes # Bld Auto 0.54 <0.87 k/uL LAB 713-8([facility]) Eosinophil/leuk NFr Bld Auto 2.4 % LAB 711-2([facility]) Eosinophil # Bld Auto 0.12 <0.46 k/uL LAB 706-2([facility]) Basophils/leuk NFr Bld Auto 0.8 % LAB 704-7([facility]) Basophils # Bld Auto 0.04 <0.11 k/uL LAB 51171-9([facility]) Imm Granulocytes/layla k NFr Bld Auto 0.2 % LAB 14156-1([facility]) Imm Granulocytes # Bld Auto <0.03 <0.10 k/uL LAB 70566-7([facility]) nRBC/100 WBC Bld-Rto 0.0 /100 WBC LAB 771-6([facility]) nRBC # Bld Auto <0.01 <0.01 k/u L LAB 86690-8([facility]) Differential method Bld Auto Performed By: #### 18962-4 # ### [facility] CLIA [id number] [address] [place] [address] OF DSIHA DEPRECATED HGB A1C BLD Collected: 12/09 8:53 AM Status: F Source: [facility] Order Comment: Specimen Type : BLOOD SPECIMEN Ordering Facility: [facility] Address: [address] [place] [address] TYPE CODE TESTS RESULT OUT OF RANGE REFERENCE UNITS LAB 4548-4([facility]) HbA1c MFr Bld 4.9 4.3-5.6 % Result Comment: [place] [employer] betes Association guidelines indicate that patients with HgbA1c in the range 5.7-6.4% are at increased risk for development of diabetes, and intervention by lifestyle modification may be beneficial. HgbA1c greater or equal to 6.5% is considered diagnostic of diabetes. LAB 10630-9([facility]) Est. average glucose Bld gHb Est-mCnc 94 mg/dL Result Comment: eAG: (Estima aimee average glucose) is a calculated value from HgbA1c and is human resources hr representative of the average blood glucose level in the last 2-3 month period. Performed By: #### 59947-1 # ### [facility] CLIA [id number] [address] [place] [address] [place] COMP METAB 2000 PNL SERPL Collected: 8:53 AM Status: F Source: [facility] Comment: Specimen Type : BLOOD SPECIMEN Ordering Facility: [facility] Address: [address] [place] [address] TYPE CODE TESTS RESULT OUT OF RANGE REFERENCE UNITS LAB 2885-2(LOINC) Prot SerPl-mCnc 7.4 6.3-8.0 g/dL LAB 1751-7(LOINC) Albumin SerPl-mCnc 4.5 3.9-4.9 g/dL LAB 22483-5(LOINC) Calcium SerPl-mCnc 9.2 8.5-10.2 mg/dL LAB 1975-2(LOINC) Bilirub SerPl-mCnc 0.5 0.2-1.3 mg/dL LAB 6768-6(LOINC) ALP SerPl-cCnc 62 34-123 U/L LAB 1920-8(LOINC) AST SerPl-cCnc 15 13-35 U/L LAB 1742-6(LOINC) ALT SerPl-cCnc 11 7-38 U/L LAB 2345-7(LOINC) Glucose SerPl-mCnc 90 74-99 mg/dL Result Comment: The [place] Diabetes Association (ADA) provides guidance for cutoff values for fasting glucose and random glucose. The ADA defines fasting as no caloric intake for at least 8 hours. Fasting plasma glucose results between 100 to 125 mg/dL indicate increased risk for diabetes (prediabetes). Fasting plasma glucose results greater than or equal to 126 mg/dL meet the criteria for diagnosis of diabetes. In the absence of unequivocal hyperglycemia, results should be confirmed by repeat testing. In a patient with classic symptoms of hyperglycemia or hyperglycemic crisis, random plasma glucose results greater than or equal to 200 mg/dL meet the criteria for diagnosis of diabetes. Reference: Standards of Medical Care in Diabetes 2016, [place] Diabetes Association. Diabetes Care. 2016.39(Suppl 1). LAB 3094-0(LOINC) BUN SerPl-mCnc 11 7-21 mg/ dL LAB 2160-0(LOINC) Creat SerPl-mCnc 0.67 0.58-0.96 mg/dL LAB 2951-2(LOINC) Sodium SerPl-sCnc 139 136-144 mmol/L LAB 2823-3(LOINC) Potassium SerPl-sCnc 4.2 3.7-5.1 mmol/L LAB 2075-0(LOINC) Chloride SerPl-sCnc 104 98-107 mmol/L LAB 2028-9(LOINC) CO2 SerPl-sCnc 23 22-30 mmo l/L LAB 24942-2(LOINC) Anion Gap SerPl-sCnc 12 8-15 mmol/L LAB 82638-1(LOINC) Creatinine + eGFR Pnl SerPlBld 120 >=60 mL/min/1 .73m??? Result Comment: Estimated Gl omerular Filtration Rate (eGFR) is calculated using the 2020 CKD-EPI creatinine equation. This equation utilizes serum creatinine, sex, and age as parameters. The creatinine assay has traceable calibration to isotope dilution-mass spectrometry. Refer to KDIGO guidelines for clinical interpretation. In patients with unstable renal function, e.g. those with acute kidney injury, the eGFR may not accurately reflect actual GFR. Performed By: #### 3016-3, 2 4323-8, LIPNF #### [facility] CLIA [id number] [address] [place] [address] [place] [address] [place] LIPID PANEL, NONFASTING Collected: 12/09/2024 8:53 AM Status: F Source: [facility] Order Comment: Specimen Type : BLOOD SPECIMEN Ordering Facility: [facility] Address: [address] [place] [address] TYPE CODE TESTS RESULT OUT OF RANGE REFERENCE UNITS LAB CHOLNF TOTAL CHOLESTEROL NF 183 <200 mg/dL Result Comment: <200 mg/dL, Desirable 200-239 mg/dL, Borderline high >239 mg/dL, High LAB TRIGNF TRIGLYCERIDES, NF 66 <150 mg/dL Result Comment: <150 mg/dL, Normal 150-199 mg/dL, Borderline high 200-499 mg/dL, High >499 mg/dL, Very high LAB HDLNF HDL CHOLESTEROL, NF 92 >39 mg/dL Result Comment: 40-59 mg/dL, Acceptable >59 mg/dL, High: Negative risk factor for coronary heart disease <40 mg/dL, Low: Positive risk factor for coronary heart disease LAB LDLNF LDL CHOLESTEROL, NF 78 <100 mg/dL Result Comment: <100 mg/dL, Optimal 100-129 mg/dL, Near optimal/above optimal 130-159 mg/dL, Borderline high 160-189 mg/dL, High >189 mg/dL, Very high Secondary prevention optimal LDL Cholesterol levels are recommended to be < 70 mg/dL LAB NOHDLN NON HDL CHOL, NF 91 <130 mg/dL Result Comment: <130 mg/dL, Optimal 130-159 mg/dL, Near optimal/above optimal 160-189 mg/dL, Borderline high 190-219 mg/dL, High >219 mg/dL, Very high Secondary prevention optimal non HDL Cholesterol levels are recommended to be <100 mg/dL LAB VLDLNF VLDL CHOLESTEROL, NF 13 <30 mg/dL LAB TCHDLN T CHOL/HDL RATIO NF 1.99 <5.10 mg/dL LAB LDLHDN LDL/HDL RATIO, NF 0.85 <2.54 mg/dL Result Comment: Reference: 1. National Cholesterol Education Program ATP III Guideline At-A-Glance Quick Desk Reference: National Heart, Lung, and Blood [place]. National Institutes of Health. 2001: NIH Publication No. 01-3305. 2. An International Atherosclerosis Society position paper: global recommendations for the management of dyslipidemia: executive summary, Atherosclerosis. 2014: 232(2):410-413. Performed By: #### 3016-3, 2 4323-8, LIPNF #### [facility] CLIA [id number] [address] [place] [address] OF [facility] TSH SERPL-ACNC Collected: 8:53 AM Status: F Source: [facility] Order Comment: Specimen Type : BLOOD SPECIMEN Ordering Facility: [facility] Address: [address] [place] [address] TYPE CODE TESTS RESULT OUT OF RANGE REFERENCE UNITS LAB 3016-3(LOINC) TSH SerPl-aCnc 2.370 0.270-4.200 mIU/L Result Comment: If the patie nt is , TSH reference range varies by gestational period: First Trimester (weeks 9-12): 0.180-2.990 mIU/L Second Trimester: 0.110-3.980 mIU/L Third Trimester: 0.480-4.710 mIU/L Manny Simon et al. A Practical Approach for the Verifications and Determination of Site- and Trimester-Specific Reference Intervals for Thyroid Function tests in . Thyroid, 2019:29:3:412-420. Rajesh Ramirez, et al. 2017 Guidelines of the [place] Thyroid Association for the Diagnosis and Management of Thyroid Disease during and the . Thyroid, 2017:27:3:315-389. Performed By: #### 3016-3, 2 4323-8, LIPNF #### [facility] CLIA [id number] [address] [place] [address] OF [place] PROGRESS Observed: 12/09/2024 8:08 AM Status: COMPLETED Source: [facility] HNO ID: [id number] Author: CINTHYA MAGALLANES MD Service: ? Author Type: Physician Type: Progress Notes Filed: 12/09/2024 10:36 Note Text: Chief Complaint Patient presents with: Physical HPI Miller Ellis is a 29 year old female who presents here today for Above Complaints. Patient has been in good health without recent hospitalizations, ER visits. No concerns today. ADD: Current Treatment: Adderall XR 20 mg Feels treatment is working well: Yes. Weight loss: No. Insomnia: No. GASTROENTEROLOGY complaints: No. Tremor: No. Mood disorder: No. Chest pain/Palpitations: No. Aware of risks associated with controlled substance use: Yes. Hx of misuse/abuse/diversion of meds: No. Seasonal allergies controlled with zyrtec and flonase OTC PRN. Spring and fall are worst seasons. Asymptomatic today. Requesting referral to [facility] for cervical cancer screening. Last was in 2020. Up to date on vaccinations. Past medical history, appointments, medications, allergies reviewed. Previous Medical History PAST MEDICAL HISTORY Diagnosis Date Attention deficit disorder (ADD) without hyperactivity Obesity Other acne Seasonal allergies Previous Surgical History PAST SURGICAL HISTORY Procedure Laterality Date TONSILLECTOMY AND ADENOIDECTOMY <AGE 10 Bilateral Family History FAMILY HISTORY Problem Relation Age of Onset other (epilipsy) Mother Crohn's Disease Mother No Known Problems Father other (epilipsy) Sister ADD/ADHD Sister No Known Problems Sister Seizures Brother other (heart transplant) Maternal Grandmother Alcohol abuse Maternal Grandfather Recovered Diabetes Paternal Grandfather Colon Cancer No Family History Patient Allergies ALLERGIES No Known Allergies Current Medications Current Outpatient Medications on File Prior to Visit Medication Sig amphetamine-dextroamphetamine XR (ADDERALL XR) 20 mg capsule Take 1 capsule by mouth once daily for 30 days. cetirizine HCl/pseudoephedrine (ZYRTEC-D ORAL) Take by mouth. No current facility-administered medications on file prior to visit. Social History Social History Tobacco Use Smoking status: Never Smokeless tobacco: Never Vaping Use Vaping status: Never Used Substance Use Topics Alcohol use: Yes Alcohol/week: 2.0 standard drinks of alcohol Types: 2 Cans of Beer (12oz) per week Comment: Occasionally Drug use: Never Review of Symptoms REVIEW OF SYSTEMS GENERAL: No weight loss, malaise or fevers HEENT: Negative for frequent or significant headaches, No changes in hearing or vision, no nose bleeds or other nasal problems NECK: Negative for lumps, goiter, pain and significant neck swelling RESPIRATORY: Negative for cough, hemoptysis, wheezing, COPD, dyspnea or shortness of breath CARDIOVASCULAR: Negative for chest pain, leg swelling, hypertension, CHF or palpitations GI: No nausea, vomiting, or diarrhea : No history of dysuria, frequency or incontinence REGISTERED NURSE CARDIAC: Negative for abnormal vaginal bleeding, abnormal vaginal discharge MUSCULOSKELETAL: Negative for joint pain or swelling, back pain or muscle pain SKIN: Negative for lesions, rash, and itching PSYCH: Negative for sleep disturbance, mood disorder and recent psychosocial stressors HEMATOLOGY/LYMPHOLOGY: Negative for prolonged bleeding, bruising easily or swollen nodes ENDOCRINE: Negative for cold or heat intolerance, polyuria, polydipsia and goiter NEURO: No history of headaches, syncope, paralysis, seizures or tremors EXAM: BP 116/66 Pulse 97 Resp 16 Wt 91.4 kg (201 lb 6.4 oz) LMP 04/10/2024 (Approximate) SpO2 98% BMI 31.08 kg/m? General Appearance: Well appearing, alert, in no acute distress, well-hydrated, well nourished. Obese. Skin: Skin color, texture, turgor normal, no suspicious rashes or lesions. Head: Normocephalic, no masses, lesions, tenderness or abnormalities. Eyes: Anicteric sclera. Pupils are equally round and reactive to light. Extraocular movements are intact. . Ears: External ears normal, canals clear. Nose/Sinuses: Nares normal, septum midline, mucosa normal, no drainage or sinus tenderness. Oropharynx: Lips, mucosa, and tongue normal, teeth and gums normal, oropharynx normal. Neck: Supple, no adenopathy; thyroid symmetric, normal size, no bruits. Lungs: Lungs clear to auscultation. No wheezing, rhonchi, rales.. Heart: Negative findings: no murmurs, clicks, or gallops, Positive findings: tachycardia. Abdomen: Normal abdominal exam, Abdomen soft, non-tender. Bowel sounds normal. No masses, organomegaly. Extremities: No deformities, edema, skin discoloration, clubbing or cyanosis. Good capillary refill. . Peripheral Pulses: Normal. Neurologic: CN II-XII grossly intact. Lymph Nodes: No cervical lymphadenopathy and No supraclavicular lymphadenopathy. Health Maintenance List Depression Screening Never done Anxiety Screening Never done Cervical Cancer Screening due on 08/22/2024 Influenza Vaccine(1) due on 03/21/2025 Covid-19 Vaccine(3 - 2023- season) due on 08/26/2025 DTaP,Tdap,Td Vaccine(8 - Td or Tdap) due on 09/03/2032 Hepatitis B Vaccine Completed Hepatitis C Screening Completed HIV Screening Completed ASSESSMENT/PLAN: 1. Annual physical exam - ICD9: V70.0, ICD10: Z00.00 (primary diagnosis) - Counseled on healthy diet and regular exercise - Discussed need and benefit for weight loss. BMI 31.08 kg/(m2) - Counseled on alcohol intake and health risks - Follow up for annual exam in one year - COMPREHENSIVE METABOLIC PANEL - COMPLETE BLOOD COUNT AND DIFFERENTIAL - HEMOGLOBIN A1C - THYROID STIMULATING HORMONE - LIPID PANEL, NONFASTING 2. Attention deficit hyperactivity disorder (ADHD), unspecified ADHD type - ICD9: 314.01, ICD10: F90.9 Controlled on Adderall XR 20 mg daily. Continue current regimen 3. Tachycardia - ICD9: 785.0, ICD10: R00.0 Borderline tachycardic on exam. Improved after resting. Likely 2/2 stress and stimulant. Denies caffeine or tobacco use. Recheck at future OV. 4. Class 1 obesity without serious comorbidity with body mass index (BMI) of 31.0 to 31.9 in adult, unspecified obesity type - ICD9: 278.00, V85.31, ICD10: E66.811, Z68.31 Weight increasing - Behavioral intervention 5. Screening for cervical cancer - ICD9: V76.2, ICD10: Z12.4 Referral to REGISTERED NURSE CARDIAC to establish care and obtain pap/HPV. - CONSULT TO GYNECOLOGY Cinthya Magallanes MD CNOV Observed: 12/09/2024 8:00 AM Status: COMPLETED Source: [facility] MILLER ELLIS ([id number]) 1995 F Date Time Provider Department 12/09/24 8:00 AM CINTHYA MAGALLANES During your visit today, we recorded the following information about you: Pulse Respiration Blood pressure Weight 97/minute 16/minute 116/66 91.4 kg Cinthya Magallanes MD 12/09/2024 10:36 AM Signed Chief Complaint Patient presents with: Physical HPI Miller Ellis is a 29 year old female who presents here today for Above Complaints. Patient has been in good health without recent hospitalizations, ER visits. No concerns today. ADD: Current Treatment: Adderall XR 20 mg Feels treatment is working well: Yes. Weight loss: No. Insomnia: No. GASTROENTEROLOGY complaints: No. Tremor: No. Mood disorder: No. Chest pain/Palpitations: No. Aware of risks associated with controlled substance use: Yes. Hx of misuse/abuse/diversion of meds: No. Seasonal allergies controlled with zyrtec and flonase OTC PRN. Spring and fall are worst seasons. Asymptomatic today. Requesting referral to REGISTERED NURSE CARDIAC for cervical cancer screening. Last was in 2020. Up to date on vaccinations. Past medical history, appointments, medications, allergies reviewed. Previous Medical History PAST MEDICAL HISTORY Diagnosis Date Attention deficit disorder (ADD) without hyperactivity Obesity Other acne Seasonal allergies Previous Surgical History PAST SURGICAL HISTORY Procedure Laterality Date TONSILLECTOMY AND ADENOIDECTOMY <AGE 10 Bilateral Family History FAMILY HISTORY Problem Relation Age of Onset other (epilipsy) Mother Crohn's Disease Mother No Known Problems Father other (epilipsy) Sister ADD/ADHD Sister No Known Problems Sister Seizures Brother other (heart transplant) Maternal Grandmother Alcohol abuse Maternal Grandfather Recovered Diabetes Paternal Grandfather Colon Cancer No Family History Patient Allergies ALLERGIES No Known Allergies Current Medications Current Outpatient Medications on File Prior to Visit Medication Sig amphetamine-dextroamphetamine XR (ADDERALL XR) 20 mg capsule Take 1 capsule by mouth once daily for 30 days. cetirizine HCl/pseudoephedrine (ZYRTEC-D ORAL) Take by mouth. No current facility-administered medications on file prior to visit. Social History Social History Tobacco Use Smoking status: Never Smokeless tobacco: Never Vaping Use Vaping status: Never Used Substance Use Topics Alcohol use: Yes Alcohol/week: 2.0 standard drinks of alcohol Types: 2 Cans of Beer (12oz) per week Comment: Occasionally Drug use: Never Review of Symptoms REVIEW OF SYSTEMS GENERAL: No weight loss, malaise or fevers HEENT: Negative for frequent or significant headaches, No changes in hearing or vision, no nose bleeds or other nasal problems NECK: Negative for lumps, goiter, pain and significant neck swelling RESPIRATORY: Negative for cough, hemoptysis, wheezing, COPD, dyspnea or shortness of breath CARDIOVASCULAR: Negative for chest pain, leg swelling, hypertension, CHF or palpitations GI: No nausea, vomiting, or diarrhea : No history of dysuria, frequency or incontinence REGISTERED NURSE CARDIAC: Negative for abnormal vaginal bleeding, abnormal vaginal discharge MUSCULOSKELETAL: Negative for joint pain or swelling, back pain or muscle pain SKIN: Negative for lesions, rash, and itching PSYCH: Negative for sleep disturbance, mood disorder and recent psychosocial stressors HEMATOLOGY/LYMPHOLOGY: Negative for prolonged bleeding, bruising easily or swollen nodes ENDOCRINE: Negative for cold or heat intolerance, polyuria, polydipsia and goiter NEURO: No history of headaches, syncope, paralysis, seizures or tremors EXAM: BP 116/66 Pulse 97 Resp 16 Wt 91.4 kg (201 lb 6.4 oz) LMP 04/10/2024 (Approximate) SpO2 98% BMI 31.08 kg/m? General Appearance: Well appearing, alert, in no acute distress, well-hydrated, well nourished. Obese. Skin: Skin color, texture, turgor normal, no suspicious rashes or lesions. Head: Normocephalic, no masses, lesions, tenderness or abnormalities. Eyes: Anicteric sclera. Pupils are equally round and reactive to light. Extraocular movements are intact. . Ears: External ears normal, canals clear. Nose/Sinuses: Nares normal, septum midline, mucosa normal, no drainage or sinus tenderness. Oropharynx: Lips, mucosa, and tongue normal, teeth and gums normal, oropharynx normal. Neck: Supple, no adenopathy; thyroid symmetric, normal size, no bruits. Lungs: Lungs clear to auscultation. No wheezing, rhonchi, rales.. Heart: Negative findings: no murmurs, clicks, or gallops, Positive findings: tachycardia. Abdomen: Normal abdominal exam, Abdomen soft, non-tender. Bowel sounds normal. No masses, organomegaly. Extremities: No deformities, edema, skin discoloration, clubbing or cyanosis. Good capillary refill. . Peripheral Pulses: Normal. Neurologic: CN II-XII grossly intact. Lymph Nodes: No cervical lymphadenopathy and No supraclavicular lymphadenopathy. Health Maintenance List Depression Screening Never done Anxiety Screening Never done Cervical Cancer Screening due on 08/22/2024 Influenza Vaccine(1) due on 03/21/2025 Covid-19 Vaccine(3 - season) due on 08/26/2025 DTaP,Tdap,Td Vaccine(8 - Td or Tdap) due on 09/03/2032 Hepatitis B Vaccine Completed Hepatitis C Screening Completed HIV Screening Completed ASSESSMENT/PLAN: 1. Annual physical exam - ICD9: V70.0, ICD10: Z00.00 (primary diagnosis) - Counseled on healthy diet and regular exercise - Discussed need and benefit for weight loss. BMI 31.08 kg/(m2) - Counseled on alcohol intake and health risks - Follow up for annual exam in one year - COMPREHENSIVE METABOLIC PANEL - COMPLETE BLOOD COUNT AND DIFFERENTIAL - HEMOGLOBIN A1C - THYROID STIMULATING HORMONE - LIPID PANEL, NONFASTING 2. Attention deficit hyperactivity disorder (ADHD), unspecified ADHD type - ICD9: 314.01, ICD10: F90.9 Controlled on Adderall XR 20 mg daily. Continue current regimen 3. Tachycardia - ICD9: 785.0, ICD10: R00.0 Borderline tachycardic on exam. Improved after resting. Likely 2/2 stress and stimulant. Denies caffeine or tobacco use. Recheck at future OV. 4. Class 1 obesity without serious comorbidity with body mass index (BMI) of 31.0 to 31.9 in adult, unspecified obesity type - ICD9: 278.00, V85.31, ICD10: E66.811, Z68.31 Weight increasing - Behavioral intervention 5. Screening for cervical cancer - ICD9: V76.2, ICD10: Z12.4 Referral to REGISTERED NURSE CARDIAC to establish care and obtain pap/HPV. - CONSULT TO GYNECOLOGY Cinthya Magallanes MD Allergies As of Date: 12/09/2024 (No Known Allergies) Date Reviewed: 12/09/2024 Reviewed by: Simeon Madrid LPN - Fully Assessed Reason for Visit: Physical [83] Primary Visit Diagnosis:Annual physical exam [Z00.00] Other Visit Diagnoses:Attention deficit hyperactivity disorder (ADHD), unspecified ADHD type [F90.9] Tachycardia [R00.0] Class 1 obesity without serious comorbidity with body mass index (BMI) of 31.0 to 31.9 in adult, unspecified obesity type [E66.811, Z68.31] Screening for cervical cancer [Z12.4] Order(s):CONSULT TO GYNECOLOGY [9013] Order #: [id number]: 1 FUTURE COMPREHENSIVE METABOLIC PANEL [SQCMP] Order #: [id number] FUTURE COMPLETE BLOOD COUNT AND DIFFERENTIAL [SQCBCDIF] Order #: [id number] FUTURE HEMOGLOBIN A1C [TCMJC9T] Order #: [id number] FUTURE THYROID STIMULATING HORMONE [SQTSH] Order #: [id number] FUTURE LIPID PANEL, NONFASTING [SQLIPNF] Order #: [id number] FUTURE Prescriptions as of 12/09/2024 - amphetamine-dextroamphetamine XR (ADDERALL XR) 20 mg capsule Take 1 capsule by mouth once daily for 30 days. - cetirizine HCl/pseudoephedrine (ZYRTEC-D ORAL) Take by mouth. Problem List As Of Date 12/09/2024 Noted Resolved Overweight (BMI 25.0-29.9) [E66.3] 05/07/2022 Attention deficit disorder [F98.8] 05/07/2022 History of COVID-19 [Z86.16] 05/07/2022 Acne vulgaris [L70.0] 05/07/2022 Obesity [E66.9] Disposition: Return in about 3 months (around 03/11/2025) for Follow up with Gene for ADHD. Follow-up and Disposition History for Encounter Date Provider Department Center 12/09/2024 [id number]-[id number] MAGALLANES [facility] Encounter Status:Closed by CINTHYA MAGALLANES on 12/09/24 PAIN PANEL, UR QUANT Collected: 08/26/2024 2:20 PM S tatus: F Source: [facility] Order Comment: Specimen Type : URINE SPECIMEN Ordering Facility: [facility] Address: [address] [place] [address] TYPE CODE TESTS RESULT OUT OF RANGE REFERENCE UNITS LAB 04075-1(LOIN C) Morphine Ur Cfm-mCnc <10 <10 ng/mL Result Comment: Morphine is a metabolite of codeine and heroin. LAB 77153-7(LOIN C) oxyMORphone Ur Cfm-mCnc <5 <5 ng/mL Result Comment: Oxymorphone is a metabolite of oxycodone. LAB 31880-7(LOIN C) HYDROmorphone Ur Cfm-mCnc <5 <5 ng/mL Result Comment: Hydromorphon e is a metabolite of hydrocodone. LAB 67215-1(LOIN C) DHC Ur Cfm-mCnc <5 <5 ng/mL LAB 54663-0(LOIN C) Codeine Ur Cfm-mCnc <11 <11 ng/mL LAB 61715-3(LOIN C) Amphet Ur Cfm-mCnc 4276 High <5 ng/mL Result Comment: Amphetamine may arise from amphetamine containing drugs (eg. Adderall and Benzedrine) or by metabolism of methamphetamine. Clobenzorex, famprofazone, fenethylline, fenproporex, and mefenorex contain amphetamine pro-drugs which can be metabolized to amphetamine. Selegiline is metabolized to both amphetamine and methamphetamine. LAB 38818-4(LOIN C) Nortramadol Ur-mCnc <20 <20 ng/mL Result Comment: Desmethyltra madol is a metabolite of tramadol. LAB 40138-0(LOIN C) BZE Ur Cfm-mCnc <24 <24 ng/mL Result Comment: Benzoylecgon ine is a metabolite of cocaine. LAB 19202-4(LOIN C) oxyCODONE Ur Cfm-mCnc <10 <10 ng/mL LAB 35310-2(LOIN C) Methamphet Ur Cfm-mCnc <8 <8 ng/mL LAB 42591-7(LOIN C) 6MAM Ur-mCnc <5 <5 ng/mL Result Comment: 6-DIDIER (6-mon oacetylmorphine, also known as 6-acetylmorphine) is a unique metabolite of heroin. Presence of 6-DIDIER indicates use of heroin. 6-DIDIER is further metabolized to morphine and absence of 6-DIDIER does not rule out the use of heroin. LAB 85529-2(LOIN C) HYDROcodone Ur Cfm-mCnc <8 <8 ng/mL Result Comment: Hydrocodone is a metabolite of dihydrocodeine. LAB 72202-4(LOIN C) Norfentanyl Ur Cfm-mCnc <6 <6 ng/mL Result Comment: Norfentanyl is a metabolite of fentanyl. LAB 86716-7(LOIN C) traMADol Ur Cfm-mCnc <25 <25 ng/mL LAB 48311-8(LOIN C) Norbuprenorphine Ur-mCnc <20 <20 ng/mL Result Comment: Norbuprenorp yuliya is the primary active metabolite of buprenorphine. LAB 54776-8(LOIN C) Cannabinoids Ur Cfm-mCnc <16 <16 ng/mL Result Comment: Tetrahydroca nnabinol carboxylic acid (THCA) is a metabolite of vgqye-7-ykaloycqvtcoozaglsmg which is the main active component of marijuana. LAB 78532-2(LOIN C) fentaNYL Ur Cfm-mCnc <6 <6 ng/mL LAB 3415-7(LOINC ) Buprenorphine Ur-mCnc <20 <20 ng/mL LAB 18483-8(LOIN C) Methadone Ur Cfm-mCnc <16 <16 ng/mL LAB 53499-7(LOIN C) EDDP Ur Cfm-mCnc <6 <6 ng/mL Result Comment: EDDP is a me tabolite of methadone. LAB UQNOTE NOTE,UR PAIN BALL Result Comment: This test is for medical use only. This test was developed, and its performance characteristics determined by the [facility] Department of Pathology and Laboratory Medicine. It has not been cleared or approved by the FDA. The [facility] Department of Pathology and Laboratory Medicine is regulated under CLIA as qualified to perform high- complexity testing. This test is used for clinical purposes. It should not be regarded as investigational or for research. Performed By: #### [id number] # ### [facility] CLIA [id number] [address] [place] [address] [place] SPECIMEN VALIDITY, URINE Collected: 01/2024 2:20 PM Status: F Source: [facility] Order Comment: Specimen Type : URINE SPECIMEN Ordering Facility: [facility] Address: [address] [place] [address] TYPE CODE TESTS RESULT OUT OF RANGE REFERENCE UNITS LAB SVSQ01 SPECIMEN VALIDITY QUALITY Specimen quality results within acceptable limits LAB SVCR02 CREATININE,UR INE 46.5 20.0-300.0 mg/dL LAB SVPH02 PH,URINE 5.9 4.5-8.0 LAB SVSG02 SPEC GRAVITY,UR 1.011 1.003-1.035 LAB SVOX02 OXIDANTS,URIN E <38 <200 mg/L LAB SVNI01 NITRITES,URIN E <50 <500 mg/L LAB SVCH01 CHROMATE,URIN E <10 <50 mg/L Performed By: #### [id number] # ### [facility] CLIA [id number] [address] [place] [address] [place] [address] [place] TOXICOLOGY SCREEN, ROUTINE URINE Collected: 08/26/2024 2:20 PM Status: F Source: [facility] Order Comment: Specimen Type : URINE SPECIMEN Ordering Facility: [facility] Address: [address] [place] [address] TYPE CODE TESTS RESULT OUT OF RANGE REFERENCE UNITS LAB 32454-6(LOINC) PCP Ur Ql Scn Negative Negative Result Comment: Cutoff thres hold at 25 ng/mL. LAB UBENZR BENZODIAZEPINES, UR Negative Negative Result Comment: Cutoff thres hold at 200 ng/mL. LAB 3397-7(LOINC) Cocaine Ur Ql Negative Negative Result Comment: Cutoff thres hold at 300 ng/mL. LAB 52046-9(LOINC) Amphetamines Ur Cfm-mCnc Preliminary positive Abnormal Negative Result Comment: Cutoff thres hold at 1000 ng/mL. LAB 64863-1(LOINC) Cannabinoids Ur Ql Scn Negative Negative Result Comment: Cutoff thres hold at 50 ng/mL. LAB 00832-8(LOINC) Opiates Ur Ql Scn Negative Negative Result Comment: Cutoff thres hold at 300 ng/mL. LAB UBARBR BARBITURATES, URINE Negative Negative Result Comment: Cutoff thres hold at 200 ng/mL. LAB 5645-7(LOINC) Ethanol Ur-mCnc <11 <11 mg /dL LAB 04822-2(LOINC) oxyCODONE chronometer assembler Ur Scn-mCnc Negative Negative Result Comment: Cutoff thres hold at 100 ng/mL. Performed By: #### [id number] ### # [facility] CLIA [id number] [address] [place], [place] [address] [id number] [place] PROGRESS Observed: 08/26/2024 2:02 PM Status: COMPLETED Source: [facility] HNO ID: [id number] Author: CINTHYA MAGALLANES MD Service: ? Author Type: Physician Type: Progress Notes Filed: 08/26/2024 14:49 Note Text: Chief Complaint Patient presents with: Follow Up: 3 month HPI Miller Ellis is a 29 year old female who presents here today for Above Complaints. ADD: Current Treatment: Adderall XR 20 mg Feels treatment is working well: Yes. Weight loss: No. Insomnia: No. GASTROENTEROLOGY complaints: No. Tremor: No. Mood disorder: No. Chest pain/Palpitations: No. Aware of risks associated with controlled substance use: Yes. Hx of misuse/abuse/diversion of meds: No. Last dose was today. Denies illicit drug use. Past medical history, appointments, medications, allergies reviewed. Previous Medical History PAST MEDICAL HISTORY Diagnosis Date Attention deficit disorder (ADD) without hyperactivity Other acne Overweight (BMI 25.0-29.9) Seasonal allergies Previous Surgical History PAST SURGICAL HISTORY Procedure Laterality Date TONSILLECTOMY AND ADENOIDECTOMY <AGE 10 Bilateral Family History FAMILY HISTORY Problem Relation Age of Onset other (epilipsy) Mother Crohn's Disease Mother No Known Problems Father other (epilipsy) Sister ADD/ADHD Sister No Known Problems Sister Seizures Brother other (heart transplant) Maternal Grandmother Alcohol abuse Maternal Grandfather Recovered Diabetes Paternal Grandfather Colon Cancer No Family History Patient Allergies ALLERGIES No Known Allergies Current Medications Current Outpatient Medications on File Prior to Visit Medication Sig amphetamine-dextroamphetamine XR (ADDERALL XR) 20 mg capsule Take 1 capsule by mouth once daily for 30 days. cetirizine HCl/pseudoephedrine (ZYRTEC-D ORAL) Take by mouth. No current facility-administered medications on file prior to visit. Social History Social History Tobacco Use Smoking status: Never Smokeless tobacco: Never Vaping Use Vaping status: Never Used Substance Use Topics Alcohol use: Yes Alcohol/week: 2.0 standard drinks of alcohol Types: 2 Cans of Beer (12oz) per week Comment: Occasionally Drug use: Never Review of Symptoms REVIEW OF SYSTEMS See HPI EXAM: BP 104/72 Pulse 79 Resp 16 Wt 91.3 kg (201 lb 3.2 oz) LMP 04/10/2024 (Approximate) SpO2 99% BMI 31.05 kg/m? General Appearance: Well appearing, alert, in no acute distress, well-hydrated, well nourished.. Skin: Skin color, texture, turgor normal, no suspicious rashes or lesions. Lungs: Lungs clear to auscultation. No wheezing, rhonchi, rales.. Heart: RRR without murmur, gallop, or rubs. No ectopy. Health Maintenance List Influenza Vaccine(1) due on 05/23/2024 Covid-19 Vaccine( season) due on 05/23/2024 Cervical Cancer Screening due on 08/22/2024 Depression Screening due on 12/08/2024 Anxiety Screening due on 12/08/2024 DTaP,Tdap,Td Vaccine(8 - Td or Tdap) due on 09/03/2032 Hepatitis B Vaccine Completed Hepatitis C Screening Completed HIV Screening Completed HPV Vaccine Aged Out ASSESSMENT/PLAN: 1. Attention deficit hyperactivity disorder (ADHD), unspecified ADHD type - ICD9: 314.01, ICD10: F90.9 Controlled on current regimen. Updated controlled substance agreement today. Repeat urine drug screen. F/u in 3 months. - TOXICOLOGY SCREEN, ROUTINE URINE - PAIN PANEL, UR QUANT - PAIN PANEL, UR QUANT - SPECIMEN VALIDITY, URINE Cinthya Magallanes MD CNOV Observed: 08/26/2024 2:00 PM Status: COMPLETED Source: [facility] MILLER ELLIS ([id number]) 1995 F Date Time Provider Department 08/26/24 2:00 PM CINTHYA MAGALLANES During your visit today, we recorded the following information about you: Pulse Respiration Blood pressure Weight 79/minute 16/minute 104/72 91.3 kg Cinthya Magallanes MD 08/26/2024 2:49 PM Signed Chief Complaint Patient presents with: Follow Up: 3 month HPI Miller Ellis is a 29 year old female who presents here today for Above Complaints. ADD: Current Treatment: Adderall XR 20 mg Feels treatment is working well: Yes. Weight loss: No. Insomnia: No. GASTROENTEROLOGY complaints: No. Tremor: No. Mood disorder: No. Chest pain/Palpitations: No. Aware of risks associated with controlled substance use: Yes. Hx of misuse/abuse/diversion of meds: No. Last dose was today. Denies illicit drug use. Past medical history, appointments, medications, allergies reviewed. Previous Medical History PAST MEDICAL HISTORY Diagnosis Date Attention deficit disorder (ADD) without hyperactivity Other acne Overweight (BMI 25.0-29.9) Seasonal allergies Previous Surgical History PAST SURGICAL HISTORY Procedure Laterality Date TONSILLECTOMY AND ADENOIDECTOMY <AGE 10 Bilateral Family History FAMILY HISTORY Problem Relation Age of Onset other (epilipsy) Mother Crohn's Disease Mother No Known Problems Father other (epilipsy) Sister ADD/ADHD Sister No Known Problems Sister Seizures Brother other (heart transplant) Maternal Grandmother Alcohol abuse Maternal Grandfather Recovered Diabetes Paternal Grandfather Colon Cancer No Family History Patient Allergies ALLERGIES No Known Allergies Current Medications Current Outpatient Medications on File Prior to Visit Medication Sig amphetamine-dextroamphetamine XR (ADDERALL XR) 20 mg capsule Take 1 capsule by mouth once daily for 30 days. cetirizine HCl/pseudoephedrine (ZYRTEC-D ORAL) Take by mouth. No current facility-administered medications on file prior to visit. Social History Social History Tobacco Use Smoking status: Never Smokeless tobacco: Never Vaping Use Vaping status: Never Used Substance Use Topics Alcohol use: Yes Alcohol/week: 2.0 standard drinks of alcohol Types: 2 Cans of Beer (12oz) per week Comment: Occasionally Drug use: Never Review of Symptoms REVIEW OF SYSTEMS See HPI EXAM: BP 104/72 Pulse 79 Resp 16 Wt 91.3 kg (201 lb 3.2 oz) LMP 04/10/2024 (Approximate) SpO2 99% BMI 31.05 kg/m? General Appearance: Well appearing, alert, in no acute distress, well-hydrated, well nourished.. Skin: Skin color, texture, turgor normal, no suspicious rashes or lesions. Lungs: Lungs clear to auscultation. No wheezing, rhonchi, rales.. Heart: RRR without murmur, gallop, or rubs. No ectopy. Health Maintenance List Influenza Vaccine(1) due on 05/23/2024 Covid-19 Vaccine( season) due on 05/23/2024 Cervical Cancer Screening due on 08/22/2024 Depression Screening due on 12/08/2024 Anxiety Screening due on 12/08/2024 DTaP,Tdap,Td Vaccine(8 - Td or Tdap) due on 09/03/2032 Hepatitis B Vaccine Completed Hepatitis C Screening Completed HIV Screening Completed HPV Vaccine Aged Out ASSESSMENT/PLAN: 1. Attention deficit hyperactivity disorder (ADHD), unspecified ADHD type - ICD9: 314.01, ICD10: F90.9 Controlled on current regimen. Updated controlled substance agreement today. Repeat urine drug screen. F/u in 3 months. - TOXICOLOGY SCREEN, ROUTINE URINE - PAIN PANEL, UR QUANT - PAIN PANEL, UR QUANT - SPECIMEN VALIDITY, URINE Cinthya Magallanes MD Allergies As of Date: 08/26/2024 (No Known Allergies) Date Reviewed: 08/26/2024 Reviewed by: Simeon Madrid LPN - Fully Assessed Reason for Visit: Follow Up [171] Cmt: 3 month Primary Visit Diagnosis:Attention deficit hyperactivity disorder (ADHD), unspecified ADHD type [F90.9] Order(s):TOXICOLOGY SCREEN, ROUTINE URINE [SQUTOX2] Order #: [id number] FUTURE PAIN PANEL, UR QUANT [SQUQNTPP] Order #: [id number] FUTURE TOXICOLOGY SCREEN, ROUTINE URINE [SQUTOX2] Order #: [id number]. #:[id number] PAIN PANEL, UR QUANT [SQUQNTPP] Order #: [id number]. #:[id number] PAIN PANEL, UR QUANT [MGC0521] Reflex Order#: [id number] (Ord#:[id number])Spec. #:[id number] SPECIMEN VALIDITY, URINE [GPP9936] Reflex Order#: [id number] (Ord#:[id number])Spec. #:[id number] Prescriptions as of 08/26/2024 - amphetamine-dextroamphetamine XR (ADDERALL XR) 20 mg capsule Take 1 capsule by mouth once daily for 30 days. - cetirizine HCl/pseudoephedrine (ZYRTEC-D ORAL) Take by mouth. Problem List As Of Date 08/26/2024 Noted Resolved Overweight (BMI 25.0-29.9) [E66.3] 05/07/2022 Attention deficit disorder [F98.8] 05/07/2022 History of COVID-19 [Z86.16] 05/07/2022 Acne vulgaris [L70.0] 05/07/2022 Disposition: Return in about 3 months (around 11/24/2024) for Follow up with Gene for physical. Follow-up and Disposition History for Encounter Date Provider Department Center 08/26/2024 [id number] MAGALLANES*FAMPWS [facility] Encounter Status:Closed by CINTHYA MAGALLANES on 08/26/24 PROGRESS Observed: 07/21/2024 2:51 PM Status: COMPLETED Source: [facility] ID: [id number] Author: GENE WOODRUFF APRN.[facility] Service: ? Author Type: Nurse Practitioner Type: Progress Notes Filed: 07/21/2024 15:24 Note Text: 07/21/2024 Patient presents with: Ear Problem: Right ear pain, and feels clogged, ringing x3 weeks SUBJECTIVE: This is a 28 year old that is here today for Above Complaints. For the last three weeks has had some right ear pain, pressure and ringing. Ringing is intermittent and is intermittent. Has been taking Claritin and Flonase for seasonal allergies. Ear felt hot yesterday. Admits to mild headaches. Denies fevers, chills, sore throat, loss/taste smell, sinus pressure nasal congestion, rhinorrhea, hearing loss, SOB, dyspnea, cough or wheezing. PAST MEDICAL HISTORY Diagnosis Date Attention deficit disorder (ADD) without hyperactivity Other acne Overweight (BMI 25.0-29.9) Seasonal allergies ALLERGIES Patient has no known allergies. MEDICATIONS Current Outpatient Medications Medication Sig amphetamine-dextroamphetamine XR (ADDERALL XR) 20 mg capsule Take 1 capsule by mouth once daily for 30 days. cetirizine HCl/pseudoephedrine (ZYRTEC-D ORAL) Take by mouth. No current facility-administered medications for this visit. Medications and allergies reviewed by this provider. SOCIAL HISTORY Social History Tobacco Use Smoking status: Never Smokeless tobacco: Never Vaping Use Vaping status: Never Used Substance Use Topics Alcohol use: Yes Alcohol/week: 2.0 standard drinks of alcohol Types: 2 Cans of Beer (12oz) per week Comment: Occasionally Drug use: Never REVIEW OF SYSTEMS All other reviewed and negative other than HPI. OBJECTIVE: BP 122/88 Pulse 81 Temp 37.1 ?C (98.8 ?F) LMP 04/10/2024 (Approximate) SpO2 96% . Vital signs reviewed by this provider. APPEARANCE Well appearing, alert, in no acute distress, well-hydrated, well nourished. EARS External ears normal, left canal clear and TM WNL right ear with moderate cerumen impaction blocking TM. After right ear lavage ear canal clear and TM WNL THROAT normal, no erythema NECK Supple, no adenopathy Depression Screening Never done Anxiety Screening Never done Influenza Vaccine(1) due on 05/23/2024 Covid-19 Vaccine(2023- season) due on 05/23/2024 Cervical Cancer Screening due on 08/22/2024 DTaP,Tdap,Td Vaccine(8 - Td or Tdap) due on 09/03/2032 Hepatitis B Vaccine Completed Hepatitis C Screening Completed HIV Screening Completed HPV Vaccine Aged Out ASSESSMENT/PLAN: 1. Impacted cerumen of right ear - ICD9: 380.4, ICD10: H61.21 (primary diagnosis) - resolved after lavage - no red flag symptoms or exam findings - red flag symptoms discussed, verbalizes understanding - REMOVAL OF IMPACTED CERUMEN - INSTRUMENTATION 2. Right ear pain - ICD9: 388.70, ICD10: H92.01 -continue Flonase and Claritin - may use OTC pain reliever as directed packaging - no red flag symptoms or exam findings - red flag symptoms discussed, verbalizes understanding - follow-up if fails to improve to ER with red flag symptoms Gene Podlogar, MANAGER USER [employer]PERIENCE.CONSTRUCTION SUPERVISOR Prescription instructions reviewed with patient as applicable. Patient advised if symptoms do not improve or if symptoms worsen sooner, to contact their primary care physician. Potential red flag symptoms discussed with the patient. Reviewed appropriate action plan to take if red flag symptoms occur. Patient agreeable to treatment plan. Medical Decision Making: Problems: Low: Acute, uncomplicated illness or injury Risk: Low: Low risk from testing/treatment Medical Decision Making Level: 3 - Low CNOV Observed: 07/21/2024 2:40 PM Status: COMPLETED Source: [facility] MILLER ELLIS ([id number]) 1995 F Date Time Provider Department 07/21/24 2:40 PM PODLOGARGENE During your visit today, we recorded the following information about you: Temperature Pulse Blood pressure 98.8 degrees 81/minute 122/88 Gene Woodruff APRN.CNP 07/21/2024 3:24 PM Signed 07/21/2024 Patient presents with: Ear Problem: Right ear pain, and feels clogged, ringing x3 weeks SUBJECTIVE: This is a 28 year old that is here today for Above Complaints. For the last three weeks has had some right ear pain, pressure and ringing. Ringing is intermittent and is intermittent. Has been taking Claritin and Flonase for seasonal allergies. Ear felt hot yesterday. Admits to mild headaches. Denies fevers, chills, sore throat, loss/taste smell, sinus pressure nasal congestion, rhinorrhea, hearing loss, SOB, dyspnea, cough or wheezing. PAST MEDICAL HISTORY Diagnosis Date Attention deficit disorder (ADD) without hyperactivity Other acne Overweight (BMI 25.0-29.9) Seasonal allergies ALLERGIES Patient has no known allergies. MEDICATIONS Current Outpatient Medications Medication Sig amphetamine-dextroamphetamine XR (ADDERALL XR) 20 mg capsule Take 1 capsule by mouth once daily for 30 days. cetirizine HCl/pseudoephedrine (ZYRTEC-D ORAL) Take by mouth. No current facility-administered medications for this visit. Medications and allergies reviewed by this provider. SOCIAL HISTORY Social History Tobacco Use Smoking status: Never Smokeless tobacco: Never Vaping Use Vaping status: Never Used Substance Use Topics Alcohol use: Yes Alcohol/week: 2.0 standard drinks of alcohol Types: 2 Cans of Beer (12oz) per week Comment: Occasionally Drug use: Never REVIEW OF SYSTEMS All other reviewed and negative other than HPI. OBJECTIVE: BP 122/88 Pulse 81 Temp 37.1 ?C (98.8 ?F) LMP 04/10/2024 (Approximate) SpO2 96% . Vital signs reviewed by this provider. APPEARANCE Well appearing, alert, in no acute distress, well-hydrated, well nourished. EARS External ears normal, left canal clear and TM WNL right ear with moderate cerumen impaction blocking TM. After right ear lavage ear canal clear and TM WNL THROAT normal, no erythema NECK Supple, no adenopathy Depression Screening Never done Anxiety Screening Never done Influenza Vaccine(1) due on 05/23/2024 Covid-19 Vaccine(2023- season) due on 05/23/2024 Cervical Cancer Screening due on 08/22/2024 DTaP,Tdap,Td Vaccine(8 - Td or Tdap) due on 09/03/2032 Hepatitis B Vaccine Completed Hepatitis C Screening Completed HIV Screening Completed HPV Vaccine Aged Out ASSESSMENT/PLAN: 1. Impacted cerumen of right ear - ICD9: 380.4, ICD10: H61.21 (primary diagnosis) - resolved after lavage - no red flag symptoms or exam findings - red flag symptoms discussed, verbalizes understanding - REMOVAL OF IMPACTED CERUMEN - INSTRUMENTATION 2. Right ear pain - ICD9: 388.70, ICD10: H92.01 -continue Flonase and Claritin - may use OTC pain reliever as directed packaging - no red flag symptoms or exam findings - red flag symptoms discussed, verbalizes understanding - follow-up if fails to improve to ER with red flag symptoms Gene Woodruff, MANAGER USER [employer]PERIENCE.CONSTRUCTION SUPERVISOR Prescription instructions reviewed with patient as applicable. Patient advised if symptoms do not improve or if symptoms worsen sooner, to contact their primary care physician. Potential red flag symptoms discussed with the patient. Reviewed appropriate action plan to take if red flag symptoms occur. Patient agreeable to treatment plan. Medical Decision Making: Problems: Low: Acute, uncomplicated illness or injury Risk: Low: Low risk from testing/treatment Medical Decision Making Level: 3 - Low Allergies As of Date: 07/21/2024 (No Known Allergies) Date Reviewed: 07/21/2024 Reviewed by: Kelly Irvin LPN - Fully Assessed Reason for Visit: Ear Problem [38] Cmt: Right ear pain, and feels clogged, ringing x3 weeks Primary Visit Diagnosis:Impacted cerumen of right ear [H61.21] Other Visit Diagnosis:Right ear pain [H92.01] Order(s): REMOVAL OF IMPACTED CERUMEN - INSTRUMENTATION [71903AUD] Order #: [id number] Prescriptions as of 07/21/2024 - amphetamine-dextroamphetamine XR (ADDERALL XR) 20 mg capsule Take 1 capsule by mouth once daily for 30 days. - cetirizine HCl/pseudoephedrine (ZYRTEC-D ORAL) Take by mouth. Problem List As Of Date 07/21/2024 Noted Resolved Overweight (BMI 25.0-29.9) [E66.3] 05/07/2022 Attention deficit disorder [F98.8] 05/07/2022 History of COVID-19 [Z86.16] 05/07/2022 Acne vulgaris [L70.0] 05/07/2022 Encounter Status:Closed by GENE WOODRUFF on 07/21/24 ALLERGIES DATE TYPE / CODE NAME / CODE REACTION SEVERITY SOURCE 03/04/2025 DRUG/[id number] (SNOMED CT) DEXTROAMPHETAMINE-A MPHETAMINE OTHER: SEE C [facility] Drug Class/16302498 3(SNOMED CT) NO KNOWN ALLERGIES [facility] ENCOUNTERS ADMIT/DISCHARGE ACCOUNT NUMBER ADMITTING ENCOUNTER CLASS LOC ATION SOURCE 06/06/2025/ 5 [id number] Ambulatory [facility] 04/22/2025/ 5 [id number] Ambulatory [facility] 03/04/2025/ 5 [id number] [facility]/10[facility]/ 5 [id number] [facility] 12/09/2024/ 5 [id number] [facility]/ 5 [id number] Ambulatory [facility] 08/26/2024/ 4 [id number] Ambulatory [facility] ing:[facility] 07/21/2024/ 4 [id number] Ambulatory [facility] PAYERS ENCOUNTER GUARANTOR PAYER SUBSCRIBER SOURCE 06/06/2025 Primary Insurance:BLUE CARD PPO OOSPolicy Number: [id number] colten Date:3232-57-96Biga Name:Alaina ZARATEJOSÉ: [id number] [address] 04/22/2025 Primary Insurance:BLUE CARD PPO OOSPolicy Number: [id number] colten Date:7702-96-33Uizv Name:Alaina ZARATEJOSÉ: [id number] [place], [place] [id number] [place] [address] 03/04/2025 Primary Insurance:BLUE CARD PPO OOSPolicy Number: [id number] colten Date:7945-58-24Yucf Name:Alaina ZARATECARLOSOB: [id number] [place] [address] [facility] 02/10/2025 Primary Insurance:BLUE CARD PPO OOSPolicy Number: [id number] colten Date:7641-64-50Pfwd Name:Alaina ZARATEJOSÉ: [id number] [place] [address] [facility] 12/09/2024 Primary Insurance:BLUE CARD PPO OOSPolicy Number: [id number] colten Date:9266-69-44Xdsc Name:Alaina ADDISON: [id number] [place] [address] [facility] 12/09/2024 Primary Insurance:BLUE CARD PPO OOSPolicy Number: [id number] colten Date:4524-84-28Wcaa Name:Alaina ADDISON: [id number] [place] [address] [facility] 08/26/2024 Primary Insurance:BLUE CARD PPO OOSPolicy Number: [id number] colten Date:6741-53-60Lbed Name:Alaina ADDISON: [id number] [place] [address] [facility] 07/21/2024 Primary Insurance:BLUE CARD PPO OOSPolicy Number: [id number] colten Date:9393-75-76Nwhf Name:Alaina ADDISON: [id number] [place] [address] [facility]
[2025-06-19 04:21] VITALS: BP 115/84; PULSE 94; RESP 18; TEMP 36.4; O2SAT 99; BMI 33.8
--- NOTE | 2025-06-19 05:04 | EX.ED.DYSGE1 ---
HPI History of Present Illness Chief Complaint: Rash Informant: patient Narrative Narrative: Almost 24 hours ago patient all of a sudden started having hives. Better with Benadryl, but then recurs when it wears off. She also tried some topical Benadryl cream which helped temporarily but she is having trouble sleeping tonight because it is so itchy in the areas where she has these. She recently had a car trip to and from [place] she just returned back, she used shampoo at the hotel, but no other different topical treatments, perfumes, lotions other than the Benadryl cream, prescription medications, or exposures that she can think of that would be causing this. She has had no dyspnea, syncope, peripheral edema, trouble swallowing or throat swelling. PFSH PFSH Home Medications ?Medication ?Instructions ?Recorded ?Last Taken ?Type atomoxetine 40 mg capsule 40 mg PO DAILY 06/19/25 Unknown History cetirizine 10 mg tablet (24Hour 10 mg PO DAILY 06/19/25 Unknown History Allergy) prednisone 20 mg tablet 40 mg (2 x 20 mg) PO DAILY 4 days 06/19/25 Unknown Rx #8 tabs Allergy/AdvReac Type Severity Reaction Status Date / Time No Known Allergies Allergy Verified 06/19/25 04:21 Surgical History Hx of tonsillectomy Social History Smoking Status: Never smoker ROS ROS ED Constitutional Constitutional ED: Denies chills or fever(s) Eyes Eyes: Denies change in vision or diplopia ENT ENT ED: Denies rhinorrhea or sore throat Cardiovascular Cardiovascular: Denies chest pain, leg edema, palpitations or syncope Respiratory/Chest Respiratory/Chest: Denies cough or dyspnea Gastrointestinal Gastrointestinal: Denies abdominal pain, diarrhea, nausea or vomiting Genitourinary Genitourinary ED: Denies dysuria or hematuria Musculoskeletal Musculoskeletal: Denies back pain or neck pain Integumentary Reports pruritus and rash; Denies abscess Neurologic Neurologic: Denies headache(s), paresthesias or weakness Psychiatric Psychiatric: Denies anxiety or suicidal thoughts EXAM Physical Exam Const Vital Signs: 06/19/25 04:21 Temperature 97.6 F L Temperature Source Oral Pulse Rate 94 Respiratory Rate 18 Blood Pressure 115/84 H Blood Pressure Mean 94 Pulse Ox 99 Oxygen Delivery Method Room Air Positive well nourished and well developed General Appearance ED: well developed and NAD HEENT Reports moist mucous membranes HEENT Narrative: Posterior pharynx clear. No edema. No tongue elevation. No stridor. Normal voice/phonation. normocephalic and atraumatic Eyes PERRL and EOMs intact bilaterally Neck full ROM, no lymphadenopathy and supple Resp normal respiratory effort and clear to auscultation bilaterally Cardio regular rate, regular rhythm and no murmurs Rate: Negative for tachycardic GI non-tender and non-distended Auscultation: normoactive bowel sounds Palpation: soft Back/Spine no CVA tenderness General Back: other FROM Extremity normal to inspection General Extremety ED: Negative for edema, pulses abnormal or tenderness General Extremity: Negative for edema or pulses abnormal Neuro oriented x3, CN's II-XII intact bilaterally and no sensory deficits noted Sensorium / Orientation: awake and alert Motor Exam: strength 5/5 throughout Psych mental status grossly normal Skin no wounds Skin Narrative: Scattered urticaria including the left palm, the right medial upper arm, both forearms where they are smaller, lower abdomen, both thighs. MDM MDM MDM Narrative Medical decision making narrative: Vital signs are normal, no signs or symptoms of anaphylactoid reaction or anaphylaxis. Started her on prednisone, advised to take Benadryl in the meantime, and counseled that if she continues to be exposed to what ever is causing this she may have recurrent hives when the prednisone is finished, we discussed reasons to return. Discharge Plan Triage Chief Complaint: Rash ED Provider: Stuart Rubi Dx/Rx/DC Orders Clinical Impression: Urticaria Instructions: ED Hives (Adult) Prescriptions: New prednisone 20 mg tablet 40 mg PO DAILY 4 Days Qty: 8 0RF No Action atomoxetine 40 mg capsule 40 mg PO DAILY cetirizine [24Hour Allergy] 10 mg tablet 10 mg PO DAILY Primary Care Provider: Thomas Magallanes Referrals: Thomas Magallanes MD [Primary Care Provider, Family Practice] - As Needed Print Language: Liberian Disposition Disposition: Home, Self Care
[2025-06-19 05:06] VITALS: BP 114/83; PULSE 89; RESP 18; TEMP 36.6; O2SAT 99
== END 2025-06-19 05:17 | disposition home or self-care (01) ==
PROVIDERS: Emergency Provider Emergency Medicine; PCP Family Medicine; Visit Provider Emergency Medicine
DX: L50.9 Urticaria, unspecified (principal)
CPT/HCPCS: 99282